=== PATIENT | male | born 1975 | race American Indian/Alaskan Native ===

== ENCOUNTER 2018-08-14 16:02 | Emergency (ER) | payer BC, OTHER ==
[2018-08-14 17:01] VITALS: BP 176/102
--- NOTE | 2018-08-14 17:03 | Emergency Department Report ---
Chief Complaint: Adult Asthma Stated Complaint: CHEST PAIN/ASTHMA/HEAD PAIN Time Seen by Provider: 08/14/18 17:00 - HPI History of Present Illness: This is a 43 y.o. male that presents to ER with SOB, N/V, fever, and cough. PMH of HTN, asthma Patient reports symptoms started 3 days ago while painting home. Patient denies taking medication prior to arrival. - Exam Vital Signs: Vital Signs 08/14/18 17:00 Temperature 100 F H Pulse Rate 102 H Respiratory 20 Rate Blood Pressure 176/102 O2 Sat by Pulse 95 Oximetry MSE screening note: Focused history and physical exam performed. Due to findings the following was ordered: CXR ED Disposition for MSE Condition: Stable
[2018-08-14] MEDS ORDERED: IBUPROFEN PO ONE (17:50)
[2018-08-14] MEDS ORDERED: PROVENTIL IH ONE (17:50)
[2018-08-14] MEDS ORDERED: DECADRON IV ONE (17:51)
--- NOTE | 2018-08-14 18:14 | XRay Report ---
PROCEDURE: XR CHEST ROUTINE 2V TECHNIQUE: PA and lateral chest radiographs were obtained. HISTORY: cough, fever, r/o pneumonia COMPARISONS: None. FINDINGS: Heart: Heart size normal. Mediastinum/Vessels: Trachea midline. Lungs/Pleural space: Normal. Bony thorax: No acute osseous abnormality. IMPRESSION: No acute pulmonary disease. This document is electronically signed by Sriram Hinojosa MD., Aug 14 2018 06:12:35 PM ET
[2018-08-14] MEDS ORDERED: DECADRON IM ONE (18:17)
--- NOTE | 2018-08-14 18:32 | Emergency Department Report ---
- General Chief Complaint: Adult Asthma Stated Complaint: CHEST PAIN/ASTHMA/HEAD PAIN Time Seen by Provider: 08/14/18 17:00 Source: patient Mode of arrival: Ambulatory Limitations: No Limitations - History of Present Illness Initial Comments: Patient is a 43-year-old male with a history of asthma who presents for wheezing cough productive of yellow-green with wheezing worse at night and environmental exposure symptoms haver persisted for past four days, there is no cp no n/v no diaphoresis , sob is relieve by rest. MD Complaint: cough, sore throat, rhinorrhea, nasal congestion, sinus pain Onset/Timin -: days(s) Severity: moderate Severity scale (0 -10): 5 Quality: sharp Consistency: constant Improves With: rest Worsens With: activity Associated Symptoms: rhinorrhea, nasal congestion, sore throat, cough, shortness of breath, ear pain. denies: nausea, vomiting, rash, right sweats, epistaxis, hoarseness Treatments Prior to Arrival: none - Related Data Previous Rx's Medication Instructions Recorded Last Taken Type Sulfamethoxazole/Trimethoprim 1 each PO BID #6 tablet 01/16/18 Unknown Rx [Bactrim DS TAB] ALBUTEROL Inhaler(NF) [VENTOLIN 2 puff IH Q4H PRN #1 inha 08/14/18 Unknown Rx Inhaler(NF)] Azithromycin [Zithromax Z-TRISTON] 250 mg PO DAILY 5 Days #6 tab 08/14/18 Unknown Rx Benzonatate [Tessalon Perles] 100 mg PO Q8HR PRN #30 capsule 08/14/18 Unknown Rx Dexamethasone [Decadron] 4 mg PO Q8H #12 tablet 08/14/18 Unknown Rx Ibuprofen 800 mg PO TID PRN #30 tablet 08/14/18 Unknown Rx Allergies Allergy/AdvReac Type Severity Reaction Status Date / Time No Known Allergies Allergy Verified 08/14/18 16:18 ED Review of Systems ROS: Stated complaint: CHEST PAIN/ASTHMA/HEAD PAIN Other details as noted in HPI Constitutional: malaise Eyes: denies: eye pain, eye discharge, vision change ENT: ear pain, throat pain, congestion Respiratory: cough, shortness of breath, wheezing Cardiovascular: denies: chest pain, palpitations Endocrine: no symptoms reported Gastrointestinal: denies: abdominal pain, nausea, vomiting, diarrhea Genitourinary: denies: urgency, dysuria, frequency, hematuria, discharge Musculoskeletal: denies: back pain Skin: denies: rash, lesions Neurological: denies: headache, weakness, paresthesias Psychiatric: denies: anxiety, depression Hematological/Lymphatic: denies: easy bleeding, easy bruising ED Past Medical Hx - Past Medical History Previous Medical History?: Yes Hx Arthritis: Yes - Surgical History Past Surgical History?: Yes Additional Surgical History: Hernia Surgery - Social History Smoking Status: Current Every Day Smoker Substance Use Type: None - Medications Home Medications: Home Medications Medication Instructions Recorded Confirmed Last Taken Type Sulfamethoxazole/Trimethoprim 1 each PO BID #6 tablet 01/16/18 Unknown Rx [Bactrim DS TAB] ALBUTEROL Inhaler(NF) [VENTOLIN 2 puff IH Q4H PRN #1 inha 08/14/18 Unknown Rx Inhaler(NF)] Azithromycin [Zithromax Z-TRISTON] 250 mg PO DAILY 5 Days #6 tab 08/14/18 Unknown Rx Benzonatate [Tessalon Perles] 100 mg PO Q8HR PRN #30 capsule 08/14/18 Unknown Rx Dexamethasone [Decadron] 4 mg PO Q8H #12 tablet 08/14/18 Unknown Rx Ibuprofen 800 mg PO TID PRN #30 tablet 08/14/18 Unknown Rx ED Physical Exam - General Limitations: No Limitations General appearance: alert, in no apparent distress - Head Head exam: Present: atraumatic, normocephalic - Eye Eye exam: Present: normal appearance, PERRL, EOMI Pupils: Present: normal accommodation - ENT ENT exam: Present: mucous membranes moist, TM's normal bilaterally, normal external ear exam - Expanded ENT Exam Expanded Throat exam: Positive: tonsillar erythema, tonsillomegaly, other (uvula midline no exudate no lesions no swelling no stridor ). Negative: tonsillar exudate, R peritonsillar mass, L peritonsillar mass - Neck Neck exam: Present: normal inspection, full ROM, lymphadenopathy. Absent: tenderness, thyromegaly - Respiratory Respiratory exam: Present: normal lung sounds bilaterally. Absent: respiratory distress, wheezes, stridor, chest wall tenderness - Cardiovascular Cardiovascular Exam: Present: regular rate, normal rhythm, normal heart sounds. Absent: systolic murmur, diastolic murmur, rubs, gallop - GI/Abdominal GI/Abdominal exam: Present: soft, normal bowel sounds. Absent: tenderness, bruit, hernia - Rectal Rectal exam: Present: deferred - Extremities Exam Extremities exam: Present: normal inspection, full ROM, normal capillary refill. Absent: tenderness, pedal edema, joint swelling, calf tenderness - Back Exam Back exam: Present: normal inspection, full ROM. Absent: tenderness, CVA tenderness (R), CVA tenderness (L), muscle spasm, paraspinal tenderness, vertebral tenderness, rash noted - Neurological Exam Neurological exam: Present: alert, oriented X3, CN II-XII intact, normal gait, reflexes normal. Absent: motor sensory deficit - Psychiatric Psychiatric exam: Present: normal affect, normal mood - Skin Skin exam: Present: warm, dry, intact, normal color. Absent: rash ED Course Vital Signs 08/14/18 17:00 Temperature 100 F H Pulse Rate 102 H Respiratory 20 Rate Blood Pressure 176/102 O2 Sat by Pulse 95 Oximetry ED Medical Decision Making - Radiology Data Radiology results: report reviewed, image reviewed Findings [address] [address] XRay Report Signed Patient: HARISH GOODWIN MR#: [id number] : 1975 Acct:[id number] Age/Sex: 43 / M ADM Date: 08/14/18 Loc: ED Attending Dr: Ordering Physician: JOE HATCH Date of Service: 08/14/18 Procedure(s): XR chest routine 2V Accession Number(s): [id number] cc: JOE HATCH Fluoro Time In Minutes: PROCEDURE: XR CHEST ROUTINE 2V TECHNIQUE: PA and lateral chest radiographs were obtained. HISTORY: cough, fever, r/o pneumonia COMPARISONS: None. FINDINGS: Heart: Heart size normal. Mediastinum/Vessels: Trachea midline. Lungs/Pleural space: Normal. Bony thorax: No acute osseous abnormality. IMPRESSION: No acute pulmonary disease. This document is electronically signed by Sriram Del Real MD., Aug 14 2018 06:12:35 PM ET Transcribed By: ARI Dictated By: SRIRAM DEL REAL MD Electronically Authenticated By: SRIRAM DEL REAL MD Signed Date/Time: 08/14/181813 DD/ 53 TD/TT: 08/14/184 - Medical Decision Making this is bronchitis versus asthma exacerbation breathing is improve with medications given in ed pt is currently ambulatory with steady gait no increase in wheezign or sob , plan: dc to home with rx for albuterol inhaler, zpack,decadron, ibuprofen , tessalon pearls, pt will folllow up with pcp in 2-3 days , will return to ed if symptoms worsen. Critical care attestation.: If time is entered above; I have spent that time in minutes in the direct care of this critically ill patient, excluding procedure time. ED Disposition Clinical Impression: Bronchitis Asthma Qualifiers: Asthma severity: moderate Asthma persistence: unspecified Asthma complication type: unspecified Qualified Code(s): J45.909 - Unspecified asthma, uncomplicated Disposition: DC-01 TO HOME OR SELFCARE Is pt being admited?: No Does the pt Need Aspirin: No Condition: Stable Instructions: Chronic Bronchitis (ED), Asthma (ED) Prescriptions: Dexamethasone [Decadron] 4 mg PO Q8H #12 tablet Ibuprofen 800 mg PO TID PRN #30 tablet PRN Reason: pain fever Benzonatate [Tessalon Perles] 100 mg PO Q8HR PRN #30 capsule PRN Reason: Cough ALBUTEROL Inhaler(NF) [VENTOLIN Inhaler(NF)] 2 puff IH Q4H PRN #1 inha PRN Reason: shortness of breathe wheezing Azithromycin [Zithromax Z-TRISTON] 250 mg PO DAILY 5 Days #6 tab Referrals: JOSHUA WREN MD [Staff Physician] - 3-5 Days KAYLIE ESPINOSA MD [Staff Physician] - 3-5 Days Forms: Work/School Release Form(ED) Time of Disposition: 18:42
== END 2018-08-14 18:54 | disposition home or self-care (01) ==
LOC: ED 16:02
DX: J45.909 Unspecified asthma, uncomplicated (principal); M19.90 Unspecified osteoarthritis, unspecified site; F17.200 Nicotine dependence, unspecified, uncomplicated
CPT/HCPCS: 71046; 94640; 96372; 99283; J1100

== ENCOUNTER 2018-11-01 11:17 | Emergency (ER) | payer BC ==
--- NOTE | 2018-11-01 11:23 | Emergency Department Report ---
Blank Doc - Documentation Documentation: this is a 43-year-old male that presents with right sided lower back pain. de nies any injuries or urinary complaints. This initial assessment/diagnostic orders/clinical plan/treatment(s) is/are subject to change based on patient's health status, clinical progression and re-assessment by fellow clinical providers in the ED. Further treatment and workup at subsequent clinical providers discretion. Patient/guardians urged not to elope from the ED as their condition may be serious if not clinically assessed and managed. Initial orders include: 1- Patient sent to [facility] for further evaluation and treatment
[2018-11-01 11:30] VITALS: BP 150/104
[2018-11-01] MEDS ORDERED: TORADOL IM ONE (12:20)
--- NOTE | 2018-11-01 12:20 | Emergency Department Report ---
ED Back Pain/Injury HPI - General Chief Complaint: Extremity Injury, Lower Stated Complaint: CHRONIC BACK PAIN/RT SIDE PAIN Time Seen by Provider: 11/01/18 11:22 Source: patient Limitations: No Limitations - History of Present Illness Initial Comments: Mr. Mcmahan is a 43-year-old male who was diagnosed with sciatica 3-4 years ago. He was recently evaluated at outside hospital ER for similar symptoms 2 months ago. He stated that he had injury remote injury 8 years ago. The person fell onto his back. He has right flank pain radiating to his right leg. Severe moderately burning achy pain. No bowel or urinary incontinence denies leg weakness. Has not seen a medical front desk specialist. He does not perform heavy lifting at work. MD Complaint: back pain -: Gradual, days(s) (3) Similar Symptoms Previously: No Place: home Severity: moderate Quality: dull Consistency: constant Improves With: none Worsens With: movement Associated Symptoms: denies other symptoms - Related Data Previous Rx's Medication Instructions Recorded Last Taken Type Sulfamethoxazole/Trimethoprim 1 each PO BID #6 tablet 01/16/18 Unknown Rx [Bactrim DS TAB] ALBUTEROL Inhaler(NF) [VENTOLIN 2 puff IH Q4H PRN #1 inha 08/14/18 Unknown Rx Inhaler(NF)] Azithromycin [Zithromax Z-TRISTON] 250 mg PO DAILY 5 Days #6 tab 08/14/18 Unknown Rx Benzonatate [Tessalon Perles] 100 mg PO Q8HR PRN #30 capsule 08/14/18 Unknown Rx Ibuprofen [Ibuprofen 800] 800 mg PO TID PRN #30 tablet 08/14/18 Unknown Rx dexAMETHasone [Decadron] 4 mg PO Q8H #12 tablet 08/14/18 Unknown Rx Cyclobenzaprine [Flexeril] 10 mg PO TID PRN #15 tablet 11/01/18 Unknown Rx HYDROcodone/APAP 5-325 [[place] 1 each PO Q6HR PRN #10 tablet 11/01/18 Unknown Rx 5/325] Allergies Allergy/AdvReac Type Severity Reaction Status Date / Time No Known Allergies Allergy Verified 08/14/18 16:18 ED Review of Systems ROS: Stated complaint: CHRONIC BACK PAIN/RT SIDE PAIN Other details as noted in HPI Comment: All other systems reviewed and negative Constitutional: denies: fever, malaise Respiratory: denies: cough Cardiovascular: denies: chest pain ED Past Medical Hx - Past Medical History Previous Medical History?: Yes Hx Arthritis: Yes - Surgical History Additional Surgical History: Hernia Surgery - Social History Smoking Status: Current Every Day Smoker Substance Use Type: None - Medications Home Medications: Home Medications Medication Instructions Recorded Confirmed Last Taken Type Sulfamethoxazole/Trimethoprim 1 each PO BID #6 tablet 01/16/18 Unknown Rx [Bactrim DS TAB] ALBUTEROL Inhaler(NF) [VENTOLIN 2 puff IH Q4H PRN #1 inha 08/14/18 Unknown Rx Inhaler(NF)] Azithromycin [Zithromax Z-TRISTON] 250 mg PO DAILY 5 Days #6 tab 08/14/18 Unknown Rx Benzonatate [Tessalon Perles] 100 mg PO Q8HR PRN #30 capsule 08/14/18 Unknown Rx Ibuprofen [Ibuprofen 800] 800 mg PO TID PRN #30 tablet 08/14/18 Unknown Rx dexAMETHasone [Decadron] 4 mg PO Q8H #12 tablet 08/14/18 Unknown Rx Cyclobenzaprine [Flexeril] 10 mg PO TID PRN #15 tablet 11/01/18 Unknown Rx HYDROcodone/APAP 5-325 [[place] 1 each PO Q6HR PRN #10 tablet 11/01/18 Unknown Rx 5/325] ED Physical Exam - General Limitations: No Limitations General appearance: alert, in no apparent distress - Head Head exam: Present: atraumatic, normocephalic - Eye Eye exam: Present: normal appearance - ENT ENT exam: Present: mucous membranes moist - Neck Neck exam: Present: normal inspection, full ROM - Respiratory Respiratory exam: Present: normal lung sounds bilaterally. Absent: respiratory distress, wheezes, rales, rhonchi - Cardiovascular Cardiovascular Exam: Present: regular rate, normal rhythm, normal heart sounds. Absent: systolic murmur, diastolic murmur, rubs, gallop - GI/Abdominal GI/Abdominal exam: Present: soft, normal bowel sounds. Absent: distended, tenderness, guarding, rebound - Rectal Rectal exam: Present: deferred - Extremities Exam Extremities exam: Present: normal inspection - Back Exam Back exam: Present: normal inspection, full ROM, muscle spasm. Absent: tenderness, paraspinal tenderness, vertebral tenderness - Neurological Exam Neurological exam: Present: alert, oriented X3 - Psychiatric Psychiatric exam: Present: normal affect, normal mood - Skin Skin exam: Present: warm, dry, intact, normal color. Absent: rash ED Course Vital Signs 11/01/18 11:28 Temperature 98.5 F Pulse Rate 89 Respiratory 18 Rate Blood Pressure 150/104 [Right] O2 Sat by Pulse 96 Oximetry ED Medical Decision Making - Medical Decision Making Mr. Mcmahan presents with recurrent pain due to sciatica. He appears well and comfortable in the emergency department. He received ketorolac IM in the ED. Received prescription for [place] and Flexeril Referred to outside medical physician for further evaluation. Critical care attestation.: If time is entered above; I have spent that time in minutes in the direct care of this critically ill patient, excluding procedure time. ED Disposition Clinical Impression: Acute back pain, History of sciatica Disposition: TO HOME OR SELFCARE Is pt being admited?: No Does the pt Need Aspirin: No Condition: Stable Instructions: Sciatica (ED) Prescriptions: Cyclobenzaprine [Flexeril] 10 mg PO TID PRN #15 tablet PRN Reason: Muscle Spasm HYDROcodone/APAP 5-325 [[place] 5/325] 1 each PO Q6HR PRN #10 tablet PRN Reason: Pain Referrals: IRNEE KLEIN DO [Staff Physician] - 3-5 Days Forms: Work/School Release Form(ED)
== END 2018-11-01 12:42 | disposition home or self-care (01) ==
LOC: ED 11:17
DX: G89.29 Other chronic pain (principal); M54.9 Dorsalgia, unspecified; M54.30 Sciatica, unspecified side; M19.90 Unspecified osteoarthritis, unspecified site; F17.200 Nicotine dependence, unspecified, uncomplicated; Z98.890 Other specified postprocedural states; Z79.899 Other long term (current) drug therapy
CPT/HCPCS: 96372; 99282; J1885

== ENCOUNTER 2019-03-20 13:17 | Observation (INO) | payer BC ==
[2019-03-20] MEDS ORDERED: SODIUM CHLORIDE 0.9% 1000 ML 1,000 ML IV ONE (13:26)
[2019-03-20] MEDS ORDERED: NITROGLYCERIN 2% OINT 1 GM TP ONE ×2 (13:31→13:45)
[2019-03-20] MEDS ORDERED: ASPIRIN 325 MG TAB ONE (13:31)
--- NOTE | 2019-03-20 13:42 | XRay Report ---
CHEST 1 VIEW INDICATION: Chest Pain. COMPARISON: 08/14/2018 FINDINGS: Support devices: None. Heart: Mild cardiomegaly. Lungs/Pleura: No acute air space or interstitial disease. Additional findings: None. IMPRESSION: 1. Mild cardiomegaly with clear lungs. Signer Name: Nickolas Little MD Signed: 03/20/2019 1:37 PM Workstation Name: [id number]
[2019-03-20] MEDS ORDERED: ASPIRIN 325 MG TAB PO ONE (13:45)
--- NOTE | 2019-03-20 13:45 | Emergency Department Report ---
ED Chest Pain HPI - General Chief Complaint: Chest Pain Stated Complaint: CHEST PAIN Time Seen by Provider: 03/20/19 13:23 Source: patient Mode of arrival: Ambulatory Limitations: No Limitations - History of Present Illness Initial Comments: Mr. Mcmahan is a 44-year-old male that comes to the emergency room clenching his chest, tachycardic into Neck. Patient states it feels like something is crushing him. He was just returning to his work place after eating lunch. PMH asthma Rx inhaler PSH hernia Mom alive with DM Dad dec ca Pt had a work physical 1 year ago and they told him he needed a cardiac work up and he never followed up BP elevated on admit- no hx HTN No trauma Denies use of drugs/cig Denies family hx of CAD Denies previous pain like this Pt noted to be diaphoretic and times tremulous. Denies fever or chills. Denies recent cough or purulent sputum. Denies recent inc in use of inhaler. MD Complaint: chest pain -: Sudden Onset: after eating Pain Location: substernal Severity: severe Quality: tightness, heaviness Consistency: intermittent Improves With: nothing Worsens With: nothing re: nausea Treatments Prior to Arrival: none Aspirin use within the Past 7 Days: (0) No - Related Data Previous Rx's Medication Instructions Recorded Last Taken Type Sulfamethoxazole/Trimethoprim 1 each PO BID #6 tablet 01/16/18 Unknown Rx [Bactrim DS TAB] ALBUTEROL Inhaler(NF) [VENTOLIN 2 puff IH Q4H PRN #1 inha 08/14/18 Unknown Rx Inhaler(NF)] Azithromycin [Zithromax Z-TRISTON] 250 mg PO DAILY 5 Days #6 tab 08/14/18 Unknown Rx Benzonatate [Tessalon Perles] 100 mg PO Q8HR PRN #30 capsule 08/14/18 Unknown Rx Ibuprofen [Ibuprofen 800] 800 mg PO TID PRN #30 tablet 08/14/18 Unknown Rx dexAMETHasone [Decadron] 4 mg PO Q8H #12 tablet 08/14/18 Unknown Rx Cyclobenzaprine [Flexeril] 10 mg PO TID PRN #15 tablet 11/01/18 Unknown Rx HYDROcodone/APAP 5-325 [[place] 1 each PO Q6HR PRN #10 tablet 11/01/18 Unknown Rx 5/325] Allergies Allergy/AdvReac Type Severity Reaction Status Date / Time No Known Allergies Allergy Verified 03/20/19 13:55 Heart Score - HEART Score History: Slightly suspicious EKG: Normal Age: < 45 Risk factors: No known risk factors Troponin: < normal limit HEART Score: 0 ED Review of Systems ROS: Stated complaint: CHEST PAIN Other details as noted in HPI Comment: All other systems reviewed and negative ED Past Medical Hx - Past Medical History Hx Arthritis: Yes Hx Asthma: Yes - Surgical History Past Surgical History?: Yes Additional Surgical History: Hernia Surgery - Social History Smoking Status: Current Every Day Smoker Substance Use Type: None - Medications Home Medications: Home Medications Medication Instructions Recorded Confirmed Last Taken Type Sulfamethoxazole/Trimethoprim 1 each PO BID #6 tablet 01/16/18 Unknown Rx [Bactrim DS TAB] ALBUTEROL Inhaler(NF) [VENTOLIN 2 puff IH Q4H PRN #1 inha 08/14/18 Unknown Rx Inhaler(NF)] Azithromycin [Zithromax Z-TRISTON] 250 mg PO DAILY 5 Days #6 tab 08/14/18 Unknown Rx Benzonatate [Tessalon Perles] 100 mg PO Q8HR PRN #30 capsule 08/14/18 Unknown Rx Ibuprofen [Ibuprofen 800] 800 mg PO TID PRN #30 tablet 08/14/18 Unknown Rx dexAMETHasone [Decadron] 4 mg PO Q8H #12 tablet 08/14/18 Unknown Rx Cyclobenzaprine [Flexeril] 10 mg PO TID PRN #15 tablet 11/01/18 Unknown Rx HYDROcodone/APAP 5-325 [[place] 1 each PO Q6HR PRN #10 tablet 11/01/18 Unknown Rx 5/325] ED Physical Exam - General Limitations: No Limitations General appearance: alert, in no apparent distress - Head Head exam: Present: atraumatic, normocephalic - Eye Eye exam: Present: normal appearance - ENT ENT exam: Present: mucous membranes moist - Neck Neck exam: Present: normal inspection - Respiratory Respiratory exam: Present: normal lung sounds bilaterally. Absent: respiratory distress - Cardiovascular Cardiovascular Exam: Present: regular rate, normal rhythm. Absent: systolic murmur, diastolic murmur, rubs, gallop - GI/Abdominal GI/Abdominal exam: Present: soft, normal bowel sounds - Rectal Rectal exam: Present: deferred - Extremities Exam Extremities exam: Present: normal inspection - Back Exam Back exam: Present: normal inspection - Neurological Exam Neurological exam: Present: alert, oriented X3 - Psychiatric Psychiatric exam: Present: normal affect, normal mood - Skin Skin exam: Present: warm, dry, intact, normal color. Absent: rash ED Course Vital Signs 03/20/19 03/20/19 03/20/19 13:23 13:30 13:45 Temperature 97.4 F L Pulse Rate 85 80 83 Respiratory 26 H 34 H Rate Blood Pressure 153/92 145/103 Blood Pressure 153/92 [Right] O2 Sat by Pulse 99 100 Oximetry 03/20/19 03/20/19 03/20/19 14:00 14:30 15:31 Temperature Pulse Rate 70 72 70 Respiratory 14 13 23 Rate Blood Pressure 145/103 149/94 170/84 Blood Pressure [Right] O2 Sat by Pulse 99 100 100 Oximetry 03/20/19 15:56 Temperature Pulse Rate 74 Respiratory Rate Blood Pressure 157/94 Blood Pressure [Right] O2 Sat by Pulse Oximetry SAUL score - Saul Score Age > 65: (0) No Aspirin use within the Past 7 Days: (0) No 3 or more CAD Risk Factors: (0) No 2 or more Angina events in past 24 hrs: (0) No Known CAD with more than 50% Stenosis: (0) No Elevated Cardiac Markers: (0) No ST Deviation Greater than 0.5mm: (0) No SAUL Score: 0 ED Medical Decision Making - Lab Data Result diagrams: 03/20/19 13:52 03/20/19 13:52 - EKG Data EKG shows normal: sinus rhythm Rate: tachycardia - EKG Data When compared to previous EKG there are: no significant change Interpretation: no acute changes - Radiology Data Radiology results: report reviewed, image reviewed - Medical Decision Making Labs 03/20/19 03/20/19 03/20/19 13:52 13:52 13:52 WBC 6.4 RBC 4.80 Hgb 14.0 Hct 42.2 MCV 88 MCH 29 MCHC 33 RDW 14.1 Plt Count 172 Lymph % (Auto) 30.6 [place] % (Auto) 10.9 H Eos % (Auto) 1.2 Baso % (Auto) 0.5 Lymph # 2.0 [place] # 0.7 Eos # 0.1 Baso # 0.0 Seg Neutrophils % 56.8 Seg Neutrophils # 3.6 PT 13.4 INR 1.01 APTT 27.7 Sodium 141 Potassium 3.6 Chloride 102.4 Carbon Dioxide 24 Anion Gap 18 BUN 14 Creatinine 1.1 Estimated GFR > 60 BUN/Creatinine Ratio 13 Glucose 109 H Calcium 8.9 Total Bilirubin 0.50 AST 25 ALT 24 Alkaline Phosphatase 77 Total Creatine Kinase Troponin T < 0.010 Total Protein 7.5 Albumin 4.3 Albumin/Globulin Ratio 1.3 Lipase 20 Urine Color Urine Turbidity Urine pH Ur Specific [place] Urine Protein Urine Glucose (UA) Urine Ketones Urine Blood Urine Nitrite Urine Bilirubin Urine Urobilinogen Ur Leukocyte Esterase Urine WBC (Auto) Urine RBC (Auto) U Epithel Cells (Auto) Urine Mucus Urine Opiates Screen Urine Methadone Screen Ur Barbiturates Screen Ur Phencyclidine Scrn Ur Amphetamines Screen U Benzodiazepines Scrn Urine Cocaine Screen U Marijuana (THC) Screen 03/20/19 03/20/19 03/20/19 13:52 14:14 14:14 WBC RBC Hgb Hct MCV MCH MCHC RDW Plt Count Lymph % (Auto) [place] % (Auto) Eos % (Auto) Baso % (Auto) Lymph # [place] # Eos # Baso # Seg Neutrophils % Seg Neutrophils # PT INR APTT Sodium Potassium Chloride Carbon Dioxide Anion Gap BUN Creatinine Estimated GFR BUN/Creatinine Ratio Glucose Calcium Total Bilirubin AST ALT Alkaline Phosphatase Total Creatine Kinase 565 H Troponin T Total Protein Albumin Albumin/Globulin Ratio Lipase Urine Color Yellow Urine Turbidity Clear Urine pH 7.0 Ur Specific [place] 1.016 Urine Protein <15 mg/dl Urine Glucose (UA) Neg Urine Ketones Neg Urine Blood Neg Urine Nitrite Neg Urine Bilirubin Neg Urine Urobilinogen < 2.0 Ur Leukocyte Esterase Neg Urine WBC (Auto) 1.0 Urine RBC (Auto) 3.0 U Epithel Cells (Auto) < 1.0 Urine Mucus Few Urine Opiates Screen Presumptive negative Urine Methadone Screen Presumptive negative Ur Barbiturates Screen Presumptive negative Ur Phencyclidine Scrn Presumptive negative Ur Amphetamines Screen Presumptive negative U Benzodiazepines Scrn Presumptive negative Urine Cocaine Screen Presumptive negative U Marijuana (THC) Screen Presumptive positive Vital Signs 03/20/19 03/20/19 13:23 13:45 Temperature 97.4 F L Pulse Rate 85 83 Respiratory 26 H Rate Blood Pressure 145/103 Blood Pressure 153/92 [Right] O2 Sat by Pulse 99 Oximetry 12 LEAD NOTED XRAY NOTED LABS NOTED UA NOTED THC DISCUSSED WITH PT CLONIDINE FOR BP CT NOTED [address] CALZADA TO EVALUATE 1645 PT TO BE ADMITTED FOR CARDIAC EVALUATION. - Differential Diagnosis ro dissection/ro acs/ro anxiety/ro asthma ae Critical care attestation.: If time is entered above; I have spent that time in minutes in the direct care of this critically ill patient, excluding procedure time. ED Disposition Clinical Impression: Chest pain, History of asthma Disposition: OP ADMIT IP TO THIS HOSP Is pt being admited?: Yes Does the pt Need Aspirin: Yes Condition: Stable Instructions: Chest Pain (ED) Referrals: PRIMARY CAREMD [Primary Care Provider] - 3-5 Days NATALIYA KHALIL MD [Staff Physician] - 3-5 Days Time of Disposition: 15:54
[2019-03-20 14:22] LABS: Basophils % (Auto) 0.5 % (0.0-1.8); Eosinophils # (Auto) 0.1 K/mm3 (0.0-0.4); Eosinophils % (Auto) 1.2 % (0.0-4.3); Hematocrit 42.2 % (35.5-45.6); Lymphocytes % (Auto) 30.6 % (13.4-35.0); Mean Corpuscular HGB Conc 33 % (32-34); Mean Corpuscular Volume 88 fl (84-94); Monocytes # (Auto) 0.7 K/mm3 (0.0-0.8); Monocytes % (Auto) 10.9 % (0.0-7.3); Platelet Count 172 K/mm3 (140-440); Red Cell Distribution Width 14.1 % (13.2-15.2)
[2019-03-20 14:36] LABS: Bilirubin,Urine NEG (Negative); Blood,Urine NEG (Negative); Color,Urine Yellow (Yellow); Mucus,Urine FEW /HPF; Protein,Urine <15 mg/dL mg/dL (Negative); Urobilinogen,Urine < 2.0 mg/dL (<2.0)
[2019-03-20 14:39] LABS: INR 1.01 (0.87-1.13)
[2019-03-20 14:41] LABS: Partial Thromboplastin Time 27.7 Sec. (24.2-36.6)
[2019-03-20 14:46] LABS: Alanine Aminotransferase 24 units/L (7-56); Albumin 4.3 g/dL (3.9-5); BUN/Creatinine Ratio 13; Blood Urea Nitrogen 14 mg/dL (9-20); Calcium 8.9 mg/dL (8.4-10.2); Hemolysis Index 9
[2019-03-20 14:49] LABS: Amphetamine Screen,Urine PRESUMPTIVE NEGATIVE; Benzodiazepines Screen,Urine PRESUMPTIVE NEGATIVE; Cocaine Screen,Urine PRESUMPTIVE NEGATIVE; Methadone Screen,Urine PRESUMPTIVE NEGATIVE; Opiate Screen,Urine PRESUMPTIVE NEGATIVE
[2019-03-20 15:01] LABS: Cannabinoid Screen,Urine PRESUMPTIVE POSITIVE
[2019-03-20] MEDS ORDERED: cloNIDine 0.1 MG TAB PO ONE (15:07)
--- NOTE | 2019-03-20 15:31 | Cat Scan Report ---
CTA CHEST WITH IV CONTRAST INDICATION: Chest pain. Possible aortic dissection. TECHNIQUE: Axial CT images were obtained through the chest after injection of 100 mL Omnipaque 300 IV contrast. 3 plane MIP reconstructions were produced. All CT scans at this location are performed using CT dose reduction for ALARA by means of automated exposure control. COMPARISON: One view of the chest from earlier today. FINDINGS: PULMONARY ARTERIES: Well-opacified without visualization of thromboemboli. AORTA AND ARTERIES: No dissection or other significant abnormality. MEDIASTINUM: The thyroid gland is enlarged and contains numerous nodules with extension into the supe rior mediastinum. No mediastinal mass or lymphadenopathy is seen. The heart is moderately enlarged wi thout a pericardial effusion. LUNGS: There is mild lingular and right middle lobe atelectasis without an additional significant pul monary abnormality. No pneumothorax or pleural effusion. ADDITIONAL FINDINGS: None. UPPER ABDOMEN: No acute findings. BONES: No significant osseous abnormality. IMPRESSION: 1. No aortic dissection or other acute abnormality of the chest. 2. Moderate cardiomegaly. Signer Name: Ruel Alvarado MD Signed: 03/20/2019 3:26 PM Workstation Name: [id number]
[2019-03-20] MEDS ORDERED: ALBUTEROL 2.5 MG/3 ML NEBU IH ONE (15:53)
[2019-03-20] MEDS ORDERED: IBUPROFEN 800 MG TAB PO ONE (15:54)
[2019-03-20] MEDS ORDERED: LORazepam 2 MG/ML VIAL ONE (20:37)
[2019-03-20] MEDS ORDERED: ONDANSETRON 4 MG/2 ML INJ ONE (20:38)
[2019-03-20] MEDS ORDERED: MORPHINE 2 MG/1 ML INJ ONE (20:38)
[2019-03-20] MEDS ORDERED: ONDANSETRON 4 MG/2 ML INJ IV ONE (20:45)
[2019-03-20] MEDS ORDERED: MORPHINE 4 MG/1 ML INJ IV ONE (20:45)
--- NOTE | 2019-03-20 22:16 | History and Physical Report ---
History of Present Illness Date of examination: 03/20/19 Date of admission: 03/20/19 16:12 Chief complaint: CP for few hours since AM History of present illness: 44-year-old male that comes to the emergency room clenching his chest.Patient in severe anxiety and Hyperventilating.HChest pain 8 on a scale of one to 10.was given Ativan and had good reief.Had recurrent anxiety attack while in Er assocated with chest wall muscle spasms.During my exam.Diaphoresis present.No palpitations. Past Medical History Arthritis: Yes Asthma: Yes Surgical History Past Surgical History?: Yes Additional Surgical History: Hernia Surgery Social History Smoking Status: Current Every Day Smoker Substance Use Type: None Medications Home Medications: Home Medications Medication Instructions Recorded Confirmed Last Taken Type Sulfamethoxazole/Trimethoprim 1 each PO BID #6 tablet 01/16/18 Unknown Rx [Bactrim DS TAB] ALBUTEROL Inhaler(NF) [VENTOLIN 2 puff IH Q4H PRN #1 inha 08/14/18 Unknown Rx Inhaler(NF)] Azithromycin [Zithromax Z-TRISTON] 250 mg PO DAILY 5 Days #6 tab 08/14/18 Unknown Rx Benzonatate [Tessalon Perles] 100 mg PO Q8HR PRN #30 capsule 08/14/18 Unknown Rx Ibuprofen [Ibuprofen 800] 800 mg PO TID PRN #30 tablet 08/14/18 Unknown Rx dexAMETHasone [Decadron] 4 mg PO Q8H #12 tablet 08/14/18 Unknown Rx Cyclobenzaprine [Flexeril] 10 mg PO TID PRN #15 tablet 11/01/18 Unknown Rx HYDROcodone/APAP 5-325 [[place] 1 each PO Q6HR PRN #10 tablet 11/01/18 Unknown Rx 5/325] Medications and Allergies Allergies Allergy/AdvReac Type Severity Reaction Status Date / Time No Known Allergies Allergy Verified 03/20/19 13:55 Home Medications Medication Instructions Recorded Confirmed Last Taken Type Sulfamethoxazole/Trimethoprim 1 each PO BID #6 tablet 01/16/18 Unknown Rx [Bactrim DS TAB] ALBUTEROL Inhaler(NF) [VENTOLIN 2 puff IH Q4H PRN #1 inha 08/14/18 Unknown Rx Inhaler(NF)] Azithromycin [Zithromax Z-TRISTON] 250 mg PO DAILY 5 Days #6 tab 08/14/18 Unknown Rx Benzonatate [Tessalon Perles] 100 mg PO Q8HR PRN #30 capsule 08/14/18 Unknown Rx Ibuprofen [Ibuprofen 800] 800 mg PO TID PRN #30 tablet 08/14/18 Unknown Rx dexAMETHasone [Decadron] 4 mg PO Q8H #12 tablet 08/14/18 Unknown Rx Cyclobenzaprine [Flexeril] 10 mg PO TID PRN #15 tablet 11/01/18 Unknown Rx HYDROcodone/APAP 5-325 [[place] 1 each PO Q6HR PRN #10 tablet 11/01/18 Unknown Rx 5/325] Review of Systems All systems: negative Constitutional: no weight loss, no weight gain, no fever, no chills, no sweats, no night sweats Ears, nose, mouth and throat: deferred Cardiovascular: chest pain, shortness of breath Respiratory: shortness of breath, no cough, no cough with sputum, no excessive sputum, no hemoptysis, no dyspnea on exertion, no congestion, no wheezing Gastrointestinal: no abdominal pain, no nausea, no vomiting, no diarrhea Genitourinary Male: no dysuria, no hematuria, no flank pain, no discharge, no ur inary frequency Musculoskeletal: no neck stiffness, no neck pain, no shooting arm pain, no arm numbness/tingling Integumentary: no rash, no pruritis Neurological: no head injury, no seizures, no syncope Psychiatric: anxiety Endocrine: no cold intolerance, no heat intolerance Hematologic/Lymphatic: no easy bruising, no easy bleeding Allergic/Immunologic: no urticaria Exam - Constitutional Vitals: Temp Pulse Resp BP Pulse Ox 97.4 F L 75 16 153/102 97 03/20/19 13:23 03/20/19 21:00 03/20/19 21:00 03/20/19 21:00 03/20/19 21:00 General appearance: Present: no acute distress, mild distress, well-nourished - EENT Eyes: Present: PERRL ENT: hearing intact, clear oral mucosa - Neck Neck: Present: supple, normal ROM - Respiratory Respiratory effort: normal Respiratory: bilateral: CTA - Cardiovascular Heart rate: 98 Rhythm: regular Heart Sounds: Present: S1 & S2. Absent: rub, click - Extremities Extremities: no ischemia, pulses intact, pulses symmetrical, No edema Peripheral Pulses: within normal limits - Abdominal General gastrointestinal: Present: soft, non-tender, non-distended, normal bowel sounds Male genitourinary: Present: normal - Rectal Rectal Exam: deferred - Integumentary Integumentary: Present: clear, warm, dry - Musculoskeletal Musculoskeletal: gait normal, strength equal bilaterally - Psychiatric Psychiatric: appropriate mood/affect, intact judgment & insight - Neurologic Neurologic: CNII-XII intact, moves all extremities - Allied Health Allied health notes reviewed: nursing Results - Labs CBC & Chem 7: 03/21/19 04:08 03/21/19 04:08 Labs: Laboratory Last Values WBC 6.4 K/mm3 (4.5-11.0) 03/20/19 13:52 RBC 4.80 M/mm3 (3.65-5.03) 03/20/19 13:52 Hgb 14.0 gm/dl (11.8-15.2) 03/20/19 13:52 Hct 42.2 % (35.5-45.6) 03/20/19 13:52 MCV 88 fl (84-94) 03/20/19 13:52 MCH 29 pg (28-32) 03/20/19 13:52 MCHC 33 % (32-34) 03/20/19 13:52 RDW 14.1 % (13.2-15.2) 03/20/19 13:52 Plt Count 172 K/mm3 (140-440) 03/20/19 13:52 Lymph % (Auto) 30.6 % (13.4-35.0) 03/20/19 13:52 [place] % (Auto) 10.9 % (0.0-7.3) H 03/20/19 13:52 Eos % (Auto) 1.2 % (0.0-4.3) 03/20/19 13:52 Baso % (Auto) 0.5 % (0.0-1.8) 03/20/19 13:52 Lymph # 2.0 K/mm3 (1.2-5.4) 03/20/19 13:52 [place] # 0.7 K/mm3 (0.0-0.8) 03/20/19 13:52 Eos # 0.1 K/mm3 (0.0-0.4) 03/20/19 13:52 Baso # 0.0 K/mm3 (0.0-0.1) 03/20/19 13:52 Seg Neutrophils % 56.8 % (40.0-70.0) 03/20/19 13:52 Seg Neutrophils # 3.6 K/mm3 (1.8-7.7) 03/20/19 13:52 PT 13.4 Sec. (12.2-14.9) 03/20/19 13:52 INR 1.01 (0.87-1.13) 03/20/19 13:52 APTT 27.7 Sec. (24.2-36.6) 03/20/19 13:52 Sodium 141 mmol/L (137-145) 03/20/19 13:52 Potassium 3.6 mmol/L (3.6-5.0) 03/20/19 13:52 Chloride 102.4 mmol/L (98-107) 03/20/19 13:52 Carbon Dioxide 24 mmol/L (22-30) 03/20/19 13:52 Anion Gap 18 mmol/L 03/20/19 13:52 BUN 14 mg/dL (9-20) 03/20/19 13:52 Creatinine 1.1 mg/dL (0.8-1.5) 03/20/19 13:52 Estimated GFR > 60 ml/min 03/20/19 13:52 BUN/Creatinine Ratio 13 % 03/20/19 13:52 Glucose 109 mg/dL (75-100) H 03/20/19 13:52 Calcium 8.9 mg/dL (8.4-10.2) 03/20/19 13:52 Total Bilirubin 0.50 mg/dL (0.1-1.2) 03/20/19 13:52 AST 25 units/L (5-40) 03/20/19 13:52 ALT 24 units/L (7-56) 03/20/19 13:52 Alkaline Phosphatase 77 units/L (35-129) 03/20/19 13:52 Total Creatine Kinase 565 units/L (55-170) H 03/20/19 13:52 Troponin T < 0.010 ng/mL (0.00-0.029) 03/20/19 Unknown Total Protein 7.5 g/dL (6.3-8.2) 03/20/19 13:52 Albumin 4.3 g/dL (3.9-5) 03/20/19 13:52 Albumin/Globulin Ratio 1.3 % 03/20/19 13:52 Lipase 20 units/L (13-60) 03/20/19 13:52 Urine Color Yellow (Yellow) 03/20/19 14:14 Urine Turbidity Clear (Clear) 03/20/19 14:14 Urine pH 7.0 (5.0-7.0) 03/20/19 14:14 Ur Specific [place] 1.016 (1.003-1.030) 03/20/19 14:14 Urine Protein <15 mg/dl mg/dL (Negative) 03/20/19 14:14 Urine Glucose (UA) Neg mg/dL (Negative) 03/20/19 14:14 Urine Ketones Neg mg/dL (Negative) 03/20/19 14:14 Urine Blood Neg (Negative) 03/20/19 14:14 Urine Nitrite Neg (Negative) 03/20/19 14:14 Urine Bilirubin Neg (Negative) 03/20/19 14:14 Urine Urobilinogen < 2.0 mg/dL (<2.0) 03/20/19 14:14 Ur Leukocyte Esterase Neg (Negative) 03/20/19 14:14 Urine WBC (Auto) 1.0 /HPF (0.0-6.0) 03/20/19 14:14 Urine RBC (Auto) 3.0 /HPF (0.0-6.0) 03/20/19 14:14 U Epithel Cells (Auto) < 1.0 /HPF (0-13.0) 03/20/19 14:14 Urine Mucus Few /HPF 03/20/19 14:14 Urine Opiates Screen Presumptive negative 03/20/19 14:14 Urine Methadone Screen Presumptive negative 03/20/19 14:14 Ur Barbiturates Screen Presumptive negative 03/20/19 14:14 Ur Phencyclidine Scrn Presumptive negative 03/20/19 14:14 Ur Amphetamines Screen Presumptive negative 03/20/19 14:14 U Benzodiazepines Scrn Presumptive negative 03/20/19 14:14 Urine Cocaine Screen Presumptive negative 03/20/19 14:14 U Marijuana (THC) Screen Presumptive positive 03/20/19 14:14 Drugs of Abuse Note Disclamer 03/20/19 14:14 Short CBC 03/20/19 03/21/19 Range/Units 13:52 04:08 WBC 6.4 6.0 (4.5-11.0) K/mm3 Hgb 14.0 12.7 (11.8-15.2) gm/dl Hct 42.2 39.2 (35.5-45.6) % Plt Count 172 176 (140-440) K/mm3 BMP 03/20/19 03/21/19 13:52 04:08 Sodium 141 141 Potassium 3.6 3.7 Chloride 102.4 106.6 Carbon Dioxide 24 23 BUN 14 11 Creatinine 1.1 0.9 Glucose 109 H 96 Calcium 8.9 8.2 L Cardiac Enzymes 03/20/19 03/20/19 03/20/19 Range/Units 13:52 13:52 19:01 Total Creatine Kinase 565 H (55-170) units/L Troponin T < 0.010 < 0.010 (0.00-0.029) ng/mL 03/20/19 03/20/19 03/21/19 Range/Units 22:27 Unknown 04:08 Total Creatine Kinase (55-170) units/L Troponin T < 0.010 < 0.010 < 0.010 (0.00-0.029) ng/mL Liver Function 03/20/19 03/21/19 Range/Units 13:52 04:08 Total Bilirubin 0.50 0.40 (0.1-1.2) mg/dL AST 25 19 (5-40) units/L ALT 24 20 (7-56) units/L Alkaline Phosphatase 77 67 (35-129) units/L Albumin 4.3 3.7 L (3.9-5) g/dL Urine 03/20/19 Range/Units 14:14 Urine Color Yellow (Yellow) Urine pH 7.0 (5.0-7.0) Ur Specific [place] 1.016 (1.003-1.030) Urine Protein <15 mg/dl (Negative) mg/dL Urine Glucose (UA) Neg (Negative) mg/dL - Imaging and Cardiology EKG: report reviewed Chest x-ray: report reviewed (NAF) CT scan - chest: report reviewed (NAF on CTA) Assessment and Plan Advance Directives: Yes (Full code) VTE prophylaxis?: Chemical Plan of care discussed with patient/family: Yes - Patient Problems (1) Chest pain Current Visit: Yes Status: Acute Qualifiers: Chest pain type: unspecified Qualified Code(s): R07.9 - Chest pain, unspecified Plan to address problem: Sec to anxiety Chest pain protocol Stress test in AM Serial Troponins (2) History of asthma Current Visit: Yes Status: Inactive Plan to address problem: ASlbuterol Prn qid (3) DANIEL (generalized anxiety disorder) Current Visit: Yes Status: Acute Plan to address problem: Ativan prn for now (4) DVT prophylaxis Current Visit: Yes Status: Acute Plan to address problem: On Heparin and GI prophylaxis
[2019-03-20] MEDS ORDERED: ONDANSETRON 4 MG/2 ML INJ IV PRN (22:17)
[2019-03-20] MEDS ORDERED: METOCLOPRAMIDE 10 MG/2 ML INJ IV PRN (22:17)
[2019-03-20] MEDS ORDERED: HYDROmorphone 1 MG/1 ML INJ IV PRN (22:17)
[2019-03-20] MEDS ORDERED: oxyCODONE /ACETAMINOPHEN 5-325MG TAB PO PRN (22:17)
[2019-03-20] MEDS ORDERED: ACETAMINOPHEN 325 MG TAB PO PRN (22:17)
[2019-03-20] MEDS ORDERED: ALBUTEROL 8.5 GM INHALATION IH PRN (22:22)
[2019-03-20] MEDS ORDERED: CYCLOBENZAPRINE 10 MG TAB PO PRN (22:22)
[2019-03-20] MEDS ORDERED: SODIUM CHLORIDE 0.9% 1000 ML 1,000 ML IV SCH (22:30)
[2019-03-20] MEDS ORDERED: ALBUTEROL 2.5 MG/3 ML NEBU IH PRN (22:59)
[2019-03-20] MEDS: FAMOTIDINE 20 MG/2 ML INJ IV SCH (23:24)
[2019-03-21 05:55] LABS: Basophils % (Auto) 0.3 % (0.0-1.8); Eosinophils # (Auto) 0.1 K/mm3 (0.0-0.4); Eosinophils % (Auto) 1.9 % (0.0-4.3); Hematocrit 39.2 % (35.5-45.6); Hemoglobin 12.7 gm/dl (11.8-15.2); Lymphocytes # (Auto) 2.2 K/mm3 (1.2-5.4); Lymphocytes % (Auto) 36.5 % (13.4-35.0); Mean Corpuscular HGB Conc 32 % (32-34); Mean Corpuscular Volume 89 fl (84-94); Monocytes # (Auto) 0.7 K/mm3 (0.0-0.8); Monocytes % (Auto) 12.2 % (0.0-7.3); Platelet Count 176 K/mm3 (140-440); Red Blood Count 4.41 M/mm3 (3.65-5.03); Red Cell Distribution Width 14.6 % (13.2-15.2)
[2019-03-21 06:16] LABS: Alanine Aminotransferase 20 units/L (7-56); Albumin 3.7 g/dL (3.9-5); BUN/Creatinine Ratio 12; Blood Urea Nitrogen 11 mg/dL (9-20); Calcium 8.2 mg/dL (8.4-10.2); Hemolysis Index 24
[2019-03-21] MEDS ORDERED: LORazepam 2 MG/ML VIAL IV PRN (07:00)
[2019-03-21] MEDS ORDERED: hydrALAZINE 20 MG/1 ML INJ IV PRN ×2 (10:30→16:17)
--- NOTE | 2019-03-21 11:51 | Treadmill Report ---
EXERCISE STRESS TEST The patient exercised for 9 minutes of the Rj protocol, completing stage 3 and achieving 10 mets. The peak heart rate was 150 beats per minute. The peak blood pressure was 185/105. There was no chest pain. Test was stopped for fatigue. Baseline ECG was sinus rhythm. With exercise, there were no ST changes of ischemia. No significant dysrhythmias were noted. CONCLUSION: 1. Above average exercise capacity. 2. No chest pain. 3. No ST changes of ischemia. 4. No significant dysrhythmias. This is a negative exercise ECG test. JOB# [id number] CA/NTS
[2019-03-21] MEDS: FAMOTIDINE 20 MG/2 ML INJ IV SCH (12:18)
[2019-03-21] MEDS: HEPARIN 5,000 UNIT/1 ML VIAL SUB-Q SCH ×2 (12:19→22:24)
[2019-03-21] MEDS: busPIRone 10 MG TAB PO SCH ×2 (12:23→22:24)
--- NOTE | 2019-03-21 16:25 | Progress Note ---
Assessment and Plan Assessment and plan: Patient is a 44 yo man with a history of tobacco dependency who presents with chest pains. It appears he had anxiety attack in ER. CTA chest unremarkable for PE and Stress test negative for ischemia. His symptoms are most likely related to anxiety. Anxiety disorder: start Xanax and Zoloft Malignant hypertension, which is new onset hypertension, did not respond to clonidine: iv labetalol prn, start Metoprolol and Losartan Chest pain most likely related to anxiety History of asthma: prn albuterol Marijuana use and tobacco dependency: outreach counselor on stopping Obese, bmi 36.3: lifestyle modification stressed DVT prophylaxis On Heparin and GI prophylaxis Disposition: continue inpatient care, once bp better then discharge home History Interval history: Patient was seen and examined. Follow-up on current diagnosis of chest pains. No overnight events reported to me. Patient denies any chest pain, shortness breath, nausea/vomiting or severe headaches. Imaging, nursing note, chart, labs and old chart reviewed. Discussed with patient. Hospitalist Physical - Physical exam Narrative exam: Gen: WDWN, NAD, Awake, Alert, Orientated x 3, bmi 36.3 HEENT: NCAT, EOMI, PERRL, OP Clear Neck: supple, no adenopathy, no thyromegaly, no JVD CVS/Heart: RRR, normal S1S2, pulses present bilaterally Chest/Lungs: CTA B, Symmetrical chest expansion, good air entry bilaterally, r eproducible GI/Abdomen: soft, NTND, good bowel sounds, no guarding or rebound /Bladder: no suprapubic tenderness, no CVA or paraspinal tenderness Extermity/Skin: no c/c/e, no obvious rash MSK: FROM x 4 Neuro: CN 2-12 grossly intact, no new focal deficits Psych: anxious - Constitutional Vitals: Temp Pulse Resp BP Pulse Ox 98.5 F 99 H 20 153/102 94 03/21/19 16:16 03/21/19 12:57 03/21/19 16:16 03/21/19 16:16 03/21/19 12:57 General appearance: Present: no acute distress, mild distress, well-nourished Results - Labs CBC & Chem 7: 03/21/19 04:08 03/21/19 04:08 Labs: Laboratory Last Values WBC 6.0 K/mm3 (4.5-11.0) 03/21/19 04:08 RBC 4.41 M/mm3 (3.65-5.03) 03/21/19 04:08 Hgb 12.7 gm/dl (11.8-15.2) 03/21/19 04:08 Hct 39.2 % (35.5-45.6) 03/21/19 04:08 MCV 89 fl (84-94) 03/21/19 04:08 MCH 29 pg (28-32) 03/21/19 04:08 MCHC 32 % (32-34) 03/21/19 04:08 RDW 14.6 % (13.2-15.2) 03/21/19 04:08 Plt Count 176 K/mm3 (140-440) 03/21/19 04:08 Lymph % (Auto) 36.5 % (13.4-35.0) H 03/21/19 04:08 [place] % (Auto) 12.2 % (0.0-7.3) H 03/21/19 04:08 Eos % (Auto) 1.9 % (0.0-4.3) 03/21/19 04:08 Baso % (Auto) 0.3 % (0.0-1.8) 03/21/19 04:08 Lymph # 2.2 K/mm3 (1.2-5.4) 03/21/19 04:08 [place] # 0.7 K/mm3 (0.0-0.8) 03/21/19 04:08 Eos # 0.1 K/mm3 (0.0-0.4) 03/21/19 04:08 Baso # 0.0 K/mm3 (0.0-0.1) 03/21/19 04:08 Seg Neutrophils % 49.1 % (40.0-70.0) 03/21/19 04:08 Seg Neutrophils # 2.9 K/mm3 (1.8-7.7) 03/21/19 04:08 PT 13.4 Sec. (12.2-14.9) 03/20/19 13:52 INR 1.01 (0.87-1.13) 03/20/19 13:52 APTT 27.7 Sec. (24.2-36.6) 03/20/19 13:52 Sodium 141 mmol/L (137-145) 03/21/19 04:08 Potassium 3.7 mmol/L (3.6-5.0) 03/21/19 04:08 Chloride 106.6 mmol/L (98-107) 03/21/19 04:08 Carbon Dioxide 23 mmol/L (22-30) 03/21/19 04:08 Anion Gap 15 mmol/L 03/21/19 04:08 BUN 11 mg/dL (9-20) 03/21/19 04:08 Creatinine 0.9 mg/dL (0.8-1.5) 03/21/19 04:08 Estimated GFR > 60 ml/min 03/21/19 04:08 BUN/Creatinine Ratio 12 % 03/21/19 04:08 Glucose 96 mg/dL (75-100) 03/21/19 04:08 Hemoglobin A1c 6.4 % (4-6) H 03/20/19 22:27 Calcium 8.2 mg/dL (8.4-10.2) L 03/21/19 04:08 Total Bilirubin 0.40 mg/dL (0.1-1.2) 03/21/19 04:08 AST 19 units/L (5-40) 03/21/19 04:08 ALT 20 units/L (7-56) 03/21/19 04:08 Alkaline Phosphatase 67 units/L (35-129) 03/21/19 04:08 Total Creatine Kinase 565 units/L (55-170) H 03/20/19 13:52 Troponin T < 0.010 ng/mL (0.00-0.029) 03/21/19 04:08 Total Protein 6.7 g/dL (6.3-8.2) 03/21/19 04:08 Albumin 3.7 g/dL (3.9-5) L 03/21/19 04:08 Albumin/Globulin Ratio 1.2 % 03/21/19 04:08 Lipase 20 units/L (13-60) 03/20/19 13:52 Urine Color Yellow (Yellow) 03/20/19 14:14 Urine Turbidity Clear (Clear) 03/20/19 14:14 Urine pH 7.0 (5.0-7.0) 03/20/19 14:14 Ur Specific [place] 1.016 (1.003-1.030) 03/20/19 14:14 Urine Protein <15 mg/dl mg/dL (Negative) 03/20/19 14:14 Urine Glucose (UA) Neg mg/dL (Negative) 03/20/19 14:14 Urine Ketones Neg mg/dL (Negative) 03/20/19 14:14 Urine Blood Neg (Negative) 03/20/19 14:14 Urine Nitrite Neg (Negative) 03/20/19 14:14 Urine Bilirubin Neg (Negative) 03/20/19 14:14 Urine Urobilinogen < 2.0 mg/dL (<2.0) 03/20/19 14:14 Ur Leukocyte Esterase Neg (Negative) 03/20/19 14:14 Urine WBC (Auto) 1.0 /HPF (0.0-6.0) 03/20/19 14:14 Urine RBC (Auto) 3.0 /HPF (0.0-6.0) 03/20/19 14:14 U Epithel Cells (Auto) < 1.0 /HPF (0-13.0) 03/20/19 14:14 Urine Mucus Few /HPF 03/20/19 14:14 Urine Opiates Screen Presumptive negative 03/20/19 14:14 Urine Methadone Screen Presumptive negative 03/20/19 14:14 Ur Barbiturates Screen Presumptive negative 03/20/19 14:14 Ur Phencyclidine Scrn Presumptive negative 03/20/19 14:14 Ur Amphetamines Screen Presumptive negative 03/20/19 14:14 U Benzodiazepines Scrn Presumptive negative 03/20/19 14:14 Urine Cocaine Screen Presumptive negative 03/20/19 14:14 U Marijuana (THC) Screen Presumptive positive 03/20/19 14:14 Drugs of Abuse Note Disclamer 03/20/19 14:14 Active Medications - Current Medications Current Medications: Generic Name Dose Route Start Last Admin Trade Name Freq PRN Reason Stop Dose Admin Acetaminophen 650 mg 03/20/19 22:17 Tylenol PO Q4H PRN Pain MILD(1-3)/Fever >100.5/CLOUD Albuterol 2.5 mg 03/20/19 22:59 Proventil IH Q4HRT PRN Shortness Of Breath Buspirone HCl 10 mg 03/21/19 10:00 03/21/19 12:23 Buspar PO 10 mg BID LINN Administration Cyclobenzaprine HCl 10 mg 03/20/19 22:22 03/20/19 23:25 Flexeril PO 10 mg TID PRN Administration Muscle Spasm Heparin Sodium (Porcine) 5,000 unit 03/21/19 10:00 03/21/19 12:19 Heparin SUB-Q 5,000 unit Q12HR LINN Administration Hydralazine HCl 10 mg 03/21/19 10:30 03/21/19 12:18 Apresoline IV 10 mg Q4H PRN Administration Blood Pressure Hydralazine HCl 10 mg 03/21/19 16:17 Apresoline IV Q4HR PRN Blood Pressure Hydromorphone HCl 0.5 mg 03/20/19 22:17 Dilaudid IV Q3H PRN Pain , Severe (7-10) Labetalol HCl 10 mg 03/21/19 16:16 Labetalol IV Q4H PRN Blood Pressure Lorazepam 1 mg 03/21/19 07:00 Ativan IV Q4H PRN Anxiety Losartan Potassium 50 mg 03/21/19 17:00 Cozaar PO QDAY LINN Metoclopramide HCl 10 mg 03/20/19 22:17 Reglan IV Q6H PRN Nausea And Vomiting Metoprolol Tartrate 50 mg 03/21/19 22:00 Metoprolol PO BID LINN Ondansetron HCl 4 mg 03/20/19 22:17 Zofran IV Q8H PRN Nausea And Vomiting Oxycodone/Acetaminophen 1 tab 03/20/19 22:17 Percocet 5/325 PO Q6H PRN Pain, Moderate (4-6) Sodium Chloride 10 ml 03/21/19 10:00 03/21/19 12:19 Sodium Chloride Flush Syringe 10 Ml IV 10 ml BID LINN Administration Sodium Chloride 10 ml 03/20/19 22:17 03/20/19 23:25 Sodium Chloride Flush Syringe 10 Ml IV 10 ml PRN PRN Administration LINE FLUSH
[2019-03-21] MEDS: LOSARTAN 50 MG TAB PO SCH (17:34)
--- NOTE | 2019-03-21 18:25 | Consultation ---
History of Present Illness Consult date: 03/21/19 Consult reason: chest pain History of present illness: Patient is a 44-year-old man admitted with nonexertional chest pain. In the emergency room, ECG was normal sinus rhythm, left ventricular hypertrophy by voltage criteria, no acute ischemic changes. Extensive ER workup including CT of the chest was negative for pulmonary embolism, negative for dissection. A chest x-ray revealed normal cardiac silhouette, clear lungs with no infiltrates and no edema. Serial cardiac enzymes were negative. Today, he underwent an exercise stress test in which he exercised for 9 minutes of Rj protocol, completing stage III and achieving 10 metastases. There was no chest pain. There was no ST changes of ischemia. The exercise stress test was negative. Past History Past Medical History: hypertension Medications and Allergies Allergies Allergy/AdvReac Type Severity Reaction Status Date / Time No Known Allergies Allergy Verified 03/20/19 13:55 Home Medications Medication Instructions Recorded Confirmed Last Taken Type Sulfamethoxazole/Trimethoprim 1 each PO BID #6 tablet 01/16/18 Unknown Rx [Bactrim DS TAB] ALBUTEROL Inhaler(NF) [VENTOLIN 2 puff IH Q4H PRN #1 inha 08/14/18 Unknown Rx Inhaler(NF)] Azithromycin [Zithromax Z-TRISTON] 250 mg PO DAILY 5 Days #6 tab 08/14/18 Unknown Rx Benzonatate [Tessalon Perles] 100 mg PO Q8HR PRN #30 capsule 08/14/18 Unknown Rx Ibuprofen [Ibuprofen 800] 800 mg PO TID PRN #30 tablet 08/14/18 Unknown Rx dexAMETHasone [Decadron] 4 mg PO Q8H #12 tablet 08/14/18 Unknown Rx Cyclobenzaprine [Flexeril] 10 mg PO TID PRN #15 tablet 11/01/18 Unknown Rx HYDROcodone/APAP 5-325 [[place] 1 each PO Q6HR PRN #10 tablet 11/01/18 Unknown Rx 5/325] Active Meds: Active Medications Acetaminophen (Tylenol) 650 mg PO Q4H PRN PRN Reason: Pain MILD(1-3)/Fever >100.5/CLOUD Albuterol (Proventil) 2.5 mg IH Q4HRT PRN PRN Reason: Shortness Of Breath Alprazolam (Xanax) 0.25 mg PO Q12HR LINN Buspirone HCl (Buspar) 10 mg PO BID [facility] Last Admin: 03/21/19 12:23 Dose: 10 mg Documented by: Cyclobenzaprine HCl (Flexeril) 10 mg PO TID PRN PRN Reason: Muscle Spasm Last Admin: 03/20/19 23:25 Dose: 10 mg Documented by: Heparin Sodium (Porcine) (Heparin) 5,000 unit SUB-Q Q12HR [facility] Last Admin: 03/21/19 12:19 Dose: 5,000 unit Documented by: Hydralazine HCl (Apresoline) 10 mg IV Q4H PRN PRN Reason: Blood Pressure Last Admin: 03/21/19 12:18 Dose: 10 mg Documented by: Hydralazine HCl (Apresoline) 10 mg IV Q4HR PRN PRN Reason: Blood Pressure Hydromorphone HCl (Dilaudid) 0.5 mg IV Q3H PRN PRN Reason: Pain , Severe (7-10) Labetalol HCl (Labetalol) 10 mg IV Q4H PRN PRN Reason: Blood Pressure Lorazepam (Ativan) 1 mg IV Q4H PRN PRN Reason: Anxiety Losartan Potassium (Cozaar) 50 mg PO QDAY [facility] Last Admin: 03/21/19 17:34 Dose: 50 mg Documented by: Metoclopramide HCl (Reglan) 10 mg IV Q6H PRN PRN Reason: Nausea And Vomiting Metoprolol Tartrate (Metoprolol) 50 mg PO BID [facility] Ondansetron HCl (Zofran) 4 mg IV Q8H PRN PRN Reason: Nausea And Vomiting Oxycodone/Acetaminophen (Percocet 5/325) 1 tab PO Q6H PRN PRN Reason: Pain, Moderate (4-6) Sertraline HCl (Zoloft) 50 mg PO QDAY [facility] Sodium Chloride (Sodium Chloride Flush Syringe 10 Ml) 10 ml IV BID [facility] Last Admin: 03/21/19 12:19 Dose: 10 ml Documented by: Sodium Chloride (Sodium Chloride Flush Syringe 10 Ml) 10 ml IV PRN PRN PRN Reason: LINE FLUSH Last Admin: 03/20/19 23:25 Dose: 10 ml Documented by: Review of Systems Cardiovascular: chest pain, no orthopnea, no palpitations, no rapid/irregular heart beat, no edema, no syncope, no lightheadedness, no shortness of breath Physical Examination Vital Signs Temp Pulse Resp BP Pulse Ox 97.4 F L 85 26 H 153/92 99 03/20/19 13:23 03/20/19 13:23 03/20/19 13:23 03/20/19 13:23 03/20/19 13:23 General appearance: no acute distress HEENT: Positive: PERRL Neck: Positive: neck supple Cardiac: Positive: Reg Rate and Rhythm Lungs: Positive: Decreased Breath Sounds Neuro: Positive: Grossly Intact Abdomen: Positive: Soft Male genitourinary: Positive: deferred Skin: Positive: Clear Extremities: Absent: edema Results 03/21/19 04:08 03/21/19 04:08 Cardiac Enzymes 03/21/19 Range/Units 04:08 AST 19 (5-40) units/L CBC 03/21/19 Range/Units 04:08 WBC 6.0 (4.5-11.0) K/mm3 RBC 4.41 (3.65-5.03) M/mm3 Hgb 12.7 (11.8-15.2) gm/dl Hct 39.2 (35.5-45.6) % Plt Count 176 (140-440) K/mm3 Lymph # 2.2 (1.2-5.4) K/mm3 Power # 0.7 (0.0-0.8) K/mm3 Eos # 0.1 (0.0-0.4) K/mm3 Baso # 0.0 (0.0-0.1) K/mm3 Comprehensive Metabolic Panel 03/21/19 Range/Units 04:08 Sodium 141 (137-145) mmol/L Potassium 3.7 (3.6-5.0) mmol/L Chloride 106.6 (98-107) mmol/L Carbon Dioxide 23 (22-30) mmol/L BUN 11 (9-20) mg/dL Creatinine 0.9 (0.8-1.5) mg/dL Glucose 96 (75-100) mg/dL Calcium 8.2 L (8.4-10.2) mg/dL AST 19 (5-40) units/L ALT 20 (7-56) units/L Alkaline Phosphatase 67 (35-129) units/L Total Protein 6.7 (6.3-8.2) g/dL Albumin 3.7 L (3.9-5) g/dL EKG interpretations - Telemetry EKG Rhythm: Sinus Rhythm Assessment and Plan - Patient Problems (1) Chest pain Current Visit: Yes Status: Acute Qualifiers: Chest pain type: unspecified Qualified Code(s): R07.9 - Chest pain, unspecified Plan to address problem: Atypical chest pain, ECG without acute changes, negative cardiac enzymes, normal exercise ECG stress test. No further cardiac chest pain workup is indicated, stable for cardiac discharge.
[2019-03-21] MEDS: ALPRAZolam 0.25 MG TAB PO SCH (22:24)
[2019-03-21] MEDS: METOPROLOL TARTRATE 50 MG TAB PO SCH (22:24)
--- NOTE | 2019-03-22 08:58 | Progress Note ---
Assessment and Plan - Patient Problems (1) Chest pain Current Visit: Yes Status: Acute Qualifiers: Qualified Code(s): R07.9 - Chest pain, unspecified Plan to address problem: Atypical chest pain ECG was normal sinus rhythm, left ventricular hypertrophy, no acute ischemic changes. CT of the chest was negative for pulmonary embolism, negative for dissection. Chest x-ray revealed normal cardiac silhouette, clear lungs with no infiltrates and no edema. Serial cardiac enzymes were negative. Exercise stress test was negative. No further cardiac workup indicated. We will sign off. Subjective Date of service: 03/22/19 Interval history: Patient is sitting up in the bedside chair. He has no complaints. Discharge was held due to elevated blood pressure. Objective Vital Signs Temp Pulse Resp BP Pulse Ox 03/22/19 07:14 18 03/22/19 05:00 77 03/22/19 03:00 18 03/22/19 02:00 70 03/21/19 22:24 99 H 153/102 03/21/19 20:17 99 H 03/21/19 17:34 99 H 153/102 03/21/19 16:16 98.5 F 20 153/102 03/21/19 15:14 18 03/21/19 12:57 99 H 164/103 94 03/21/19 12:18 94 H 169/117 03/21/19 12:17 89 169/117 95 03/21/19 11:31 157/112 03/21/19 11:29 164/113 03/21/19 11:28 150/105 03/21/19 11:26 138/111 03/21/19 10:06 149/108 03/21/19 10:04 145/106 - Physical Examination General: No Apparent Distress HEENT: Positive: PERRL Neck: Positive: neck supple Cardiac: Positive: Reg Rate and Rhythm Lungs: Positive: Decreased Breath Sounds Neuro: Positive: Grossly Intact Abdomen: Positive: Soft Extremities: Absent: edema
[2019-03-22] MEDS: HEPARIN 5,000 UNIT/1 ML VIAL SUB-Q SCH (09:42)
[2019-03-22] MEDS: METOPROLOL TARTRATE 50 MG TAB PO SCH (09:43)
[2019-03-22] MEDS: LOSARTAN 50 MG TAB PO SCH (09:43)
[2019-03-22] MEDS: ALPRAZolam 0.25 MG TAB PO SCH (09:43)
[2019-03-22] MEDS: busPIRone 10 MG TAB PO SCH (09:44)
[2019-03-22] MEDS ORDERED: SERTRALINE 25 MG TAB PO SCH (10:00)
[2019-03-22 10:05] VITALS: BP 153/104
--- NOTE | 2019-03-22 13:27 | Discharge Summary ---
Providers - Providers Date of Admission: 03/20/19 16:12 Date of discharge: 03/22/19 Attending physician: TODD AGUILAR 03/21/19 16:28 Consult to Mental Health [CONS] Urgent Reason For Exam: anxiety/panic Place consult to:: mental health Notified:: Lyssa BAJWA Was contact made?: Yes If yes, spoke with:: Johanna-mental health is aware of consult Primary care physician: [employer] Hospitalization Condition: Stable Hospital course: Patient is a 44 yo man with a history of tobacco dependency who presents with chest pains. It appears he had anxiety attack in ER. CTA chest unremarkable for PE and Stress test negative for ischemia. His symptoms are most likely related to anxiety. Chest pain most likely related to anxiety Anxiety disorder: start Xanax and Zoloft Malignant hypertension, which is new onset hypertension, did not respond to clonidine: iv labetalol prn, start Metoprolol and Losartan History of asthma: prn albuterol Hyperglycemia, a1c 6.4, borderline DM: counseling done, I gave him [facility] for PCP, he will consider starting Metformin Marijuana use and tobacco dependency: pet adoption counselor on stopping Obese, bmi 36.3: lifestyle modification stressed DVT prophylaxis On Heparin and GI prophylaxis Disposition: DC-01 TO HOME OR SELFCARE Time spent for discharge: 31 minutes Core Measure Documentation - Palliative Care Palliative Care/ Comfort Measures: Not Applicable - Core Measures Any of the following diagnoses?: none - VTE Discharge Requirements Deep Vein Thrombosis/Pulmonary Embolism Present on Admission: No Has pt received <5 days of overlap therapy or INR<2.0: No Anticoagulant overlap therapy prescribed at discharge: No Contraindication No Overlap Therapy order at DC: Not Indicated Exam - Physical Exam Narrative exam: Gen: WDWN, NAD, Awake, Alert, Orientated x 3, bmi 36.3 HEENT: NCAT, EOMI, PERRL, OP Clear Neck: supple, no adenopathy, no thyromegaly, no JVD CVS/Heart: RRR, normal S1S2, pulses present bilaterally Chest/Lungs: CTA B, Symmetrical chest expansion, good air entry bilaterally, reproducible cw tenderness GI/Abdomen: soft, NTND, good bowel sounds, no guarding or rebound /Bladder: no suprapubic tenderness, no CVA or paraspinal tenderness Extermity/Skin: no c/c/e, no obvious rash MSK: FROM x 4 Neuro: CN 2-12 grossly intact, no new focal deficits Psych: anxious - Constitutional Vitals: Temp Pulse Resp BP Pulse Ox 98.3 F 74 18 153/104 92 03/22/19 05:09 03/22/19 08:39 03/22/19 07:14 03/22/19 08:39 03/22/19 08:39 Plan Activity: other (no strenous activity unless cleared by PCP) Diet: low salt Special Instructions: record daily BP diary, record blood sugar diary (daily) Follow up with: NATALIYA KHALIL MD [Staff Physician] - 3-5 Days PRIMARY CARE, [Primary Care Provider] - 3-5 Days
== END 2019-03-22 11:43 | disposition home or self-care (01) ==
LOC: ED 13:17 → 4A 16:12
PROVIDERS: ADMIT Internal Medicine; ATTEND Internal Medicine
DX: R07.89 Other chest pain (principal); J45.909 Unspecified asthma, uncomplicated; F41.1 Generalized anxiety disorder; M19.90 Unspecified osteoarthritis, unspecified site; F17.200 Nicotine dependence, unspecified, uncomplicated; Z90.49 Acquired absence of other specified parts of digestive tract
CPT/HCPCS: 36415; 71045; 71275; 80053; 80307; 81001; 82550; 83036; 83690; 84484; 85025; 85610; 85730; 93005; 93010; 93017; 96372; 96374; 96375; 96376; 99284; G0378; J0360; J1644; J2060; J2270; J2405; J7030; Q9967

== ENCOUNTER 2019-04-01 09:05 | Outpatient (CLI) | payer BC ==
[2019-04-01 12:13] LABS: Basophils % (Auto) 0.3 % (0.0-1.8); Eosinophils # (Auto) 0.2 K/mm3 (0.0-0.4); Eosinophils % (Auto) 2.8 % (0.0-4.3); Lymphocytes # (Auto) 2.8 K/mm3 (1.2-5.4); Lymphocytes % (Auto) 48.4 % (13.4-35.0); Mean Corpuscular HGB Conc 33 % (32-34); Mean Corpuscular Volume 88 fl (84-94); Monocytes # (Auto) 0.7 K/mm3 (0.0-0.8); Monocytes % (Auto) 11.4 % (0.0-7.3); Platelet Count 194 K/mm3 (140-440); Red Blood Count 4.87 M/mm3 (3.65-5.03); Red Cell Distribution Width 14.3 % (13.2-15.2)
[2019-04-01 12:39] LABS: Alanine Aminotransferase 22 units/L (7-56); Albumin 4.2 g/dL (3.9-5); BUN/Creatinine Ratio 18; Blood Urea Nitrogen 21 mg/dL (9-20); Calcium 8.9 mg/dL (8.4-10.2); Hemolysis Index 7; LDL Cholesterol,Direct 103 mg/dL (50-130)
[2019-04-01 12:53] LABS: Chol/HDL Ratio 4.27 %; HDL Cholesterol 33 mg/dL (40-59)
== END 2019-04-01 09:06 | disposition home or self-care (01) ==
LOC: LAB 09:05
PROVIDERS: ATTEND Internal Medicine
DX: Z13.21 Encounter for screening for nutritional disorder (principal); Z13.220 Encounter for screening for lipoid disorders
CPT/HCPCS: 36415; 80053; 80061; 82607; 82652; 83036; 84443; 85025

== ENCOUNTER 2019-12-10 17:11 | Emergency (ER) | payer BC ==
[2019-12-10 17:49] VITALS: BP 152/108
[2019-12-10] MEDS ORDERED: FAMOTIDINE 20 MG TAB PO ONE (19:48)
[2019-12-10] MEDS ORDERED: LIDOCAINE VISCOUS 2% 15 ML ORAL LIQD PO ONE (19:48)
[2019-12-10] MEDS ORDERED: ALUM-MAG HYDROXIDE-SIMETHICONE 200-200-20MG/5ML ORAL LIQD 30 ML PO ONE (19:48)
[2019-12-10 20:14] LABS: Basophils % (Auto) 0.3 % (0.0-1.8); Eosinophils # (Auto) 0.1 K/mm3 (0.0-0.4); Eosinophils % (Auto) 1.9 % (0.0-4.3); Hematocrit 40.8 % (35.5-45.6); Hemoglobin 13.1 gm/dl (11.8-15.2); Lymphocytes # (Auto) 2.2 K/mm3 (1.2-5.4); Lymphocytes % (Auto) 40.4 % (13.4-35.0); Mean Corpuscular HGB Conc 32 % (32-34); Mean Corpuscular Volume 90 fl (84-94); Monocytes # (Auto) 0.5 K/mm3 (0.0-0.8); Monocytes % (Auto) 9.3 % (0.0-7.3); Platelet Count 174 K/mm3 (140-440); Red Blood Count 4.51 M/mm3 (3.65-5.03); Red Cell Distribution Width 14.4 % (13.2-15.2)
--- NOTE | 2019-12-10 20:21 | XRay Report ---
XR chest routine 2V INDICATION / CLINICAL INFORMATION: Chest pain COMPARISON: 10/01/2019 FINDINGS: SUPPORT DEVICES: None. HEART / MEDIASTINUM: No significant abnormality. LUNGS / PLEURA: Lungs are clear. Costophrenic sulci are sharp. No pneumothorax. ADDITIONAL FINDINGS: No significant additional findings. IMPRESSION: 1. No acute findings. Signer Name: Mo tSoll MD Signed: 12/10/2019 8:16 PM Workstation Name: [id number]
[2019-12-10 20:32] LABS: Alanine Aminotransferase 16 units/L (7-56); BUN/Creatinine Ratio 11; Blood Urea Nitrogen 12 mg/dL (9-20); Calcium 8.7 mg/dL (8.4-10.2); Hemolysis Index 4
--- NOTE | 2019-12-10 20:51 | Emergency Department Report ---
ED General Adult HPI - General Chief complaint: Headache Stated complaint: SHARP PAIN IN HEAD Source: patient Mode of arrival: Ambulatory Limitations: No Limitations - History of Present Illness Initial comments: Patient is a 44-year-old -Central African male with a history of hypertension and osteoarthritis who presents to the ED with complaint of acute onset persistent epigastric pain that radiates to the sternal area with sharp pain and headache for the last 2 days. Patient states that he has been taking his blood pressure medications with no other complaints although he admits to not having taken his blood pressure medications and the last 24 hours. Patient denies d izziness, syncope, chest pain, shortness of breath, fever, chills, cough, nausea, vomiting, diarrhea, dysuria, urinary frequency and urgency or traumatic injury, hemoptysis, hematemesis or back pain. MD Complaint: Headache; Epigastric and sternal pain -: Sudden, days(s) (2) Location: head, abdomen Radiation: non-radiation Severity scale (0 -10): 6 Quality: aching, sharp Consistency: constant Improves with: none Worsens with: none Associated Symptoms: denies other symptoms, headaches. denies: confusion, chest pain, cough, diaphoresis, fever/chills, loss of appetite, malaise, nausea/vomiting, rash, seizure, shortness of breath, syncope, weakness Treatments Prior to Arrival: none - Related Data Previous Rx's Medication Instructions Recorded Last Taken Type Sulfamethoxazole/Trimethoprim 1 each PO BID #6 tablet 01/16/18 Unknown Rx [Bactrim DS TAB] ALBUTEROL Inhaler(NF) [VENTOLIN 2 puff IH Q4H PRN #1 inha 08/14/18 Unknown Rx Inhaler(NF)] Azithromycin [Zithromax Z-TRISTON] 250 mg PO DAILY 5 Days #6 tab 08/14/18 Unknown Rx Benzonatate [Tessalon Perles] 100 mg PO Q8HR PRN #30 capsule 08/14/18 Unknown Rx Ibuprofen [Ibuprofen 800] 800 mg PO TID PRN #30 tablet 08/14/18 Unknown Rx dexAMETHasone [Decadron] 4 mg PO Q8H #12 tablet 08/14/18 Unknown Rx Cyclobenzaprine [Flexeril] 10 mg PO TID PRN #15 tablet 11/01/18 Unknown Rx HYDROcodone/APAP 5-325 [[place] 1 each PO Q6HR PRN #10 tablet 11/01/18 Unknown Rx 5/325] Albuterol Mdi (or & Nicu Only) 2 puff IH QID PRN #8.5 gram 10/01/19 Unknown Rx [ProAir HFA Inhaler] Famotidine [Pepcid] 20 mg PO BID #30 tablet 10/01/19 Unknown Rx Ibuprofen [Motrin 800 MG tab] 800 mg PO Q8HR PRN #30 tablet 10/01/19 Unknown Rx predniSONE [Deltasone] 40 mg PO QDAY 5 Days #10 tab 10/01/19 Unknown Rx Famotidine [Pepcid] 20 mg PO Q12H #60 tablet 12/10/19 Unknown Rx Naproxen 500 mg PO Q12H PRN #30 tablet 12/10/19 Unknown Rx Allergies Allergy/AdvReac Type Severity Reaction Status Date / Time No Known Allergies Allergy Verified 03/20/19 13:55 ED Review of Systems ROS: Stated complaint: SHARP PAIN IN HEAD Other details as noted in HPI Constitutional: denies: chills, fever Eyes: denies: eye pain, eye discharge, vision change ENT: denies: ear pain, throat pain Respiratory: denies: cough, shortness of breath, wheezing Cardiovascular: denies: chest pain, palpitations Endocrine: no symptoms reported Gastrointestinal: abdominal pain (Epigastric). denies: nausea, vomiting, diarrhea Genitourinary: denies: urgency, dysuria Musculoskeletal: denies: back pain, joint swelling, arthralgia Skin: denies: rash, lesions Neurological: headache. denies: weakness, paresthesias Psychiatric: anxiety. denies: depression Hematological/Lymphatic: denies: easy bleeding, easy bruising ED Past Medical Hx - Past Medical History Hx Hypertension: Yes Hx Arthritis: Yes Hx Asthma: Yes - Surgical History Additional Surgical History: Hernia Surgery - Social History Smoking Status: Current Every Day Smoker - Medications Home Medications: Home Medications Medication Instructions Recorded Confirmed Last Taken Type Sulfamethoxazole/Trimethoprim 1 each PO BID #6 tablet 01/16/18 Unknown Rx [Bactrim DS TAB] ALBUTEROL Inhaler(NF) [VENTOLIN 2 puff IH Q4H PRN #1 inha 08/14/18 Unknown Rx Inhaler(NF)] Azithromycin [Zithromax Z-TRISTON] 250 mg PO DAILY 5 Days #6 tab 08/14/18 Unknown Rx Benzonatate [Tessalon Perles] 100 mg PO Q8HR PRN #30 capsule 08/14/18 Unknown Rx Ibuprofen [Ibuprofen 800] 800 mg PO TID PRN #30 tablet 08/14/18 Unknown Rx dexAMETHasone [Decadron] 4 mg PO Q8H #12 tablet 08/14/18 Unknown Rx Cyclobenzaprine [Flexeril] 10 mg PO TID PRN #15 tablet 11/01/18 Unknown Rx HYDROcodone/APAP 5-325 [[place] 1 each PO Q6HR PRN #10 tablet 11/01/18 Unknown Rx 5/325] Albuterol Mdi (or & Nicu Only) 2 puff IH QID PRN #8.5 gram 10/01/19 Unknown Rx [ProAir HFA Inhaler] Famotidine [Pepcid] 20 mg PO BID #30 tablet 10/01/19 Unknown Rx Ibuprofen [Motrin 800 MG tab] 800 mg PO Q8HR PRN #30 tablet 10/01/19 Unknown Rx predniSONE [Deltasone] 40 mg PO QDAY 5 Days #10 tab 10/01/19 Unknown Rx Famotidine [Pepcid] 20 mg PO Q12H #60 tablet 12/10/19 Unknown Rx Naproxen 500 mg PO Q12H PRN #30 tablet 12/10/19 Unknown Rx ED Physical Exam - General Limitations: No Limitations General appearance: alert, in no apparent distress - Head Head exam: Present: atraumatic, normocephalic, normal inspection - Eye Eye exam: Present: normal appearance, PERRL, EOMI Pupils: Present: normal accommodation - ENT ENT exam: Present: normal exam, normal orophraynx, mucous membranes moist, TM's normal bilaterally, normal external ear exam - Neck Neck exam: Present: normal inspection, full ROM. Absent: tenderness - Respiratory Respiratory exam: Present: normal lung sounds bilaterally, chest wall tenderness (Palpable reproducible epigastric and sternal tenderness). Absent: respiratory distress, wheezes, rales, rhonchi - Cardiovascular Cardiovascular Exam: Present: regular rate, normal rhythm, normal heart sounds. Absent: systolic murmur, diastolic murmur, rubs, gallop - GI/Abdominal GI/Abdominal exam: Present: soft, tenderness (Palpable mild epigastric tenderness), normal bowel sounds. Absent: guarding, rebound, hyperactive bowel sounds, hypoactive bowel sounds - Extremities Exam Extremities exam: Present: normal inspection, full ROM, normal capillary refill - Back Exam Back exam: Present: normal inspection, full ROM. Absent: tenderness, CVA t enderness (L), muscle spasm, paraspinal tenderness - Neurological Exam Neurological exam: Present: alert, oriented X3, CN II-XII intact, normal gait, reflexes normal - Psychiatric Psychiatric exam: Present: normal affect, normal mood - Skin Skin exam: Present: warm, dry, intact, normal color. Absent: rash ED Course Vital Signs 12/10/19 17:47 Temperature 98.0 F Pulse Rate 68 Respiratory 16 Rate Blood Pressure 152/108 O2 Sat by Pulse 98 Oximetry ED Medical Decision Making - Lab Data Result diagrams: 12/10/19 19:53 12/10/19 19:53 - Radiology Data Radiology results: report reviewed, image reviewed Findings [facility] [address] [place] [address] XRay Report Signed Patient: HARISH GOODWIN MR#: [id number] : 1975 Acct:[id number] Age/Sex: 44 / M ADM Date: 12/10/19 Loc: ED Attending Dr: Ordering Physician: ERICK BRODY Date of Service: 12/10/19 Procedure(s): XR chest routine 2V Accession Number(s): [id number] cc: ERICK BRODY Fluoro Time In Minutes: XR chest routine 2V INDICATION / CLINICAL INFORMATION: Chest pain COMPARISON: 10/01/2019 FINDINGS: SUPPORT DEVICES: None. HEART / MEDIASTINUM: No significant abnormality. LUNGS / PLEURA: Lungs are clear. Costophrenic sulci are sharp. No pneumothorax. ADDITIONAL FINDINGS: No significant additional findings. IMPRESSION: 1. No acute findings. Signer Name: Mo Stoll MD Signed: 12/10/2019 8:16 PM Workstation Name: [id number] Transcribed By: SHELL Dictated By: Mo Stoll MD Electronically Authenticated By: Mo Stoll MD Signed Date/Time: 12/10/192015 DD/ 15 TD/TT: - Medical Decision Making This is a 44-year-old -[place] male with a history of hypertension and osteoarthritis who presents to the ED with complaint of acute onset persistent epigastric pain that radiates to the sternal area with sharp pain and headache for the last 2 days. Patient states that he has been taking his blood pressure medications with no other complaints although he admits to not having taken his blood pressure medications and the last 24 hours. In the ED, patient is alert and oriented x3 and is not in distress. Patient was treated for pain in the ED and was given antacids. Lab test results were reviewed and are all nonactionable. Chest x-ray shows no acute cardiopulmonary abnormalities or pneumonitis. Patient's heart score is 1. On reevaluation, patient felt better and was discharged home on medications for GERD and pain. Patient was discharge d home and advised to follow-up with his primary care physician in 5 to 7 days for reevaluation or return to the ED immediately if symptoms get worse. - Differential Diagnosis Costochondritis; GERD; Muscle strain; Anxiety; CAD; Gastritis Critical care attestation.: If time is entered above; I have spent that time in minutes in the direct care of this critically ill patient, excluding procedure time. ED Disposition Clinical Impression: Acute costochondritis Acute tension headache Qualifiers: Intractability: not intractable Qualified Code(s): G44.209 - Tension-type headache, unspecified, not intractable GERD (gastroesophageal reflux disease) Qualifiers: Esophagitis presence: without esophagitis Qualified Code(s): K21.9 - Gastro- esophageal reflux disease without esophagitis Disposition: DC-01 TO HOME OR SELFCARE Is pt being admited?: No Does the pt Need Aspirin: No Condition: Stable Instructions: Costochondritis (ED), Gastroesophageal Reflux Disease (ED), Tension Headache (ED) Additional Instructions: All lab test results are unremarkable as well as imaging reports. Take medication with food, drink plenty of fluids and follow-up with your primary care physician in 7 to 10 days for reevaluation. Return to the ED immediately if symptoms get worse. Prescriptions: Naproxen 500 mg PO Q12H PRN #30 tablet PRN Reason: Pain , Severe (7-10) Famotidine [Pepcid] 20 mg PO Q12H #60 tablet Referrals: [facility] [Provider Group] - 3-5 Days Time of Disposition: 20:49 Print Language: MONTENEGRIN
== END 2019-12-10 21:05 | disposition home or self-care (01) ==
LOC: ED 17:11
DX: K21.9 Gastro-esophageal reflux disease without esophagitis (principal); M94.0 Chondrocostal junction syndrome [Tietze]; G44.209 Tension-type headache, unspecified, not intractable; I10 Essential (primary) hypertension; M13.88 Other specified arthritis, other site; J45.909 Unspecified asthma, uncomplicated; F17.200 Nicotine dependence, unspecified, uncomplicated; Z79.899 Other long term (current) drug therapy; Z98.890 Other specified postprocedural states
CPT/HCPCS: 36415; 71046; 80053; 83690; 84484; 85025; 93005

== ENCOUNTER 2020-07-02 02:42 | Emergency (ER) | payer BC ==
[2020-07-02] MEDS ORDERED: SODIUM CHLORIDE 0.9% 1000 ML 1,000 ML IV ONE (03:30)
--- NOTE | 2020-07-02 03:45 | Emergency Department Report ---
ED Chest Pain HPI - General Chief Complaint: Chest Pain Stated Complaint: CHEST PAIN Time Seen by Provider: 07/02/20 03:24 Source: patient, EMS Mode of arrival: Stretcher Limitations: No Limitations - History of Present Illness Initial Comments: This is a 45-year-old -Greek male who presents to the emergency department with a complaint of some weakness and chest pain that started about 30 minutes prior to arrival. The patient says that he has a history of a few previous episodes in which the patient began having some leg weakness, lighthe adedness, and passed out. He says that he was previously evaluated at [facility], as well as a [facility], for the same symptoms. The patient was at work this evening when he began having the same symptoms. He says that he got into his car and was trying to drive himself back towards his home but "I could not make it." He pulled off the road and went into a store in which he sat down and "fell out", but the patient denies actually losing consciousness. He has a past medical history of asthma. He is an occasional marijuana smoker but denies any use this evening. He denies any significant alcohol use and none this evening as well. The patient took a full dose aspirin prior to arrival. - Related Data Previous Rx's Medication Instructions Recorded Last Taken Type Sulfamethoxazole/Trimethoprim 1 each PO BID #6 tablet 01/16/18 Unknown Rx [Bactrim DS TAB] ALBUTEROL Inhaler(NF) [VENTOLIN 2 puff IH Q4H PRN #1 inha 08/14/18 Unknown Rx Inhaler(NF)] Azithromycin [Zithromax Z-TRISTON] 250 mg PO DAILY 5 Days #6 tab 08/14/18 Unknown Rx Benzonatate [Tessalon Perles] 100 mg PO Q8HR PRN #30 capsule 08/14/18 Unknown Rx Ibuprofen [Ibuprofen 800] 800 mg PO TID PRN #30 tablet 08/14/18 Unknown Rx dexAMETHasone [Decadron] 4 mg PO Q8H #12 tablet 08/14/18 Unknown Rx Cyclobenzaprine [Flexeril] 10 mg PO TID PRN #15 tablet 11/01/18 Unknown Rx HYDROcodone/APAP 5-325 [[place] 1 each PO Q6HR PRN #10 tablet 11/01/18 Unknown Rx 5/325] Albuterol Mdi (or & Nicu Only) 2 puff IH QID PRN #8.5 gram 10/01/19 Unknown Rx [ProAir HFA Inhaler] Famotidine [Pepcid] 20 mg PO BID #30 tablet 10/01/19 Unknown Rx Ibuprofen [Motrin 800 MG tab] 800 mg PO Q8HR PRN #30 tablet 10/01/19 Unknown Rx predniSONE [Deltasone] 40 mg PO QDAY 5 Days #10 tab 10/01/19 Unknown Rx Famotidine [Pepcid] 20 mg PO Q12H #60 tablet 12/10/19 Unknown Rx Naproxen 500 mg PO Q12H PRN #30 tablet 12/10/19 Unknown Rx Allergies Allergy/AdvReac Type Severity Reaction Status Date / Time No Known Allergies Allergy Verified 03/20/19 13:55 Heart Score - HEART Score History: Slightly suspicious EKG: Normal Age: 45-65 Risk factors: No known risk factors Troponin: < normal limit HEART Score: 1 - EKG Read Time Time EKG Completed: 02:52 EKG Read Time: 02:53 - Critical Actions Critical Actions: 0-3 pts:0.9-1.7%risk of adverse cardiac event.Candidate for discharge ED Review of Systems ROS: Stated complaint: CHEST PAIN Other details as noted in HPI Comment: All other systems reviewed and negative Constitutional: denies: chills, fever Eyes: denies: eye pain, vision change ENT: denies: ear pain, throat pain Respiratory: denies: cough, wheezing Cardiovascular: chest pain, syncope (near syncope) Gastrointestinal: denies: abdominal pain, vomiting Genitourinary: denies: dysuria, discharge Musculoskeletal: denies: back pain, arthralgia Skin: denies: rash, lesions Neurological: numbness. denies: headache ED Past Medical Hx - Past Medical History Hx Hypertension: Yes Hx Arthritis: Yes Hx Asthma: Yes - Surgical History Additional Surgical History: Hernia Surgery - Social History Smoking Status: Never Smoker Substance Use Type: Marijuana - Medications Home Medications: Home Medications Medication Instructions Recorded Confirmed Last Taken Type Sulfamethoxazole/Trimethoprim 1 each PO BID #6 tablet 01/16/18 Unknown Rx [Bactrim DS TAB] ALBUTEROL Inhaler(NF) [VENTOLIN 2 puff IH Q4H PRN #1 inha 08/14/18 Unknown Rx Inhaler(NF)] Azithromycin [Zithromax Z-TRISTON] 250 mg PO DAILY 5 Days #6 tab 08/14/18 Unknown Rx Benzonatate [Tessalon Perles] 100 mg PO Q8HR PRN #30 capsule 08/14/18 Unknown Rx Ibuprofen [Ibuprofen 800] 800 mg PO TID PRN #30 tablet 08/14/18 Unknown Rx dexAMETHasone [Decadron] 4 mg PO Q8H #12 tablet 08/14/18 Unknown Rx Cyclobenzaprine [Flexeril] 10 mg PO TID PRN #15 tablet 11/01/18 Unknown Rx HYDROcodone/APAP 5-325 [[place] 1 each PO Q6HR PRN #10 tablet 11/01/18 Unknown Rx 5/325] Albuterol Mdi (or & Nicu Only) 2 puff IH QID PRN #8.5 gram 10/01/19 Unknown Rx [ProAir HFA Inhaler] Famotidine [Pepcid] 20 mg PO BID #30 tablet 10/01/19 Unknown Rx Ibuprofen [Motrin 800 MG tab] 800 mg PO Q8HR PRN #30 tablet 10/01/19 Unknown Rx predniSONE [Deltasone] 40 mg PO QDAY 5 Days #10 tab 10/01/19 Unknown Rx Famotidine [Pepcid] 20 mg PO Q12H #60 tablet 12/10/19 Unknown Rx Naproxen 500 mg PO Q12H PRN #30 tablet 12/10/19 Unknown Rx ED Physical Exam - General Limitations: No Limitations - Other Other exam information: GENERAL: The patient is well-developed well-nourished. HENT: Normocephalic. Atraumatic. Patient has moist mucous membranes. EYES: Extraocular motions are intact. Pupils equal reactive to light bilaterally. No nystagmus. NECK: Supple. Trachea is midline. CHEST/LUNGS: Clear to auscultation. There is no respiratory distress noted. HEART/CARDIOVASCULAR: Regular. There is no tachycardia. There is no murmur. ABDOMEN: Abdomen is soft, nontender. Patient has normal bowel sounds. There is no abdominal distention. SKIN: Skin is warm and dry. NEURO: The patient is awake, alert, and oriented. The patient is cooperative. The patient has no focal neurologic deficits. Normal speech. Cranial nerves II through XII grossly intact. No facial asymmetry. No pronator drift or dysmetria. MUSCULOSKELETAL: There is no tenderness or deformity. There is no limitation range of motion. ED Course Vital Signs 07/02/20 07/02/20 07/02/20 02:45 03:01 03:30 Temperature 98.7 F Pulse Rate 79 83 Respiratory 18 18 12 Rate Blood Pressure 150/103 142/110 O2 Sat by Pulse 97 97 Oximetry 07/02/20 07/02/20 07/02/20 04:00 04:30 05:00 Temperature Pulse Rate 69 73 78 Respiratory 14 14 20 Rate Blood Pressure 147/103 133/88 128/87 O2 Sat by Pulse 91 94 95 Oximetry 07/02/20 07/02/20 05:30 06:00 Temperature Pulse Rate 76 74 Respiratory 14 16 Rate Blood Pressure 134/89 128/79 O2 Sat by Pulse 93 95 Oximetry CARLTON score - Carlton Score Age > 65: (0) No Aspirin use within the Past 7 Days: (0) No 3 or more CAD Risk Factors: (0) No 2 or more Angina events in past 24 hrs: (1) Yes Known CAD with more than 50% Stenosis: (0) No Elevated Cardiac Markers: (0) No ST Deviation Greater than 0.5mm: (0) No CARLTON Score: 1 ED Medical Decision Making - Lab Data Result diagrams: 07/02/20 03:47 07/02/20 03:47 Lab Results 07/02/20 07/02/20 07/02/20 Range/Units 03:47 03:47 03:47 WBC 5.4 (4.5-11.0) K/mm3 RBC 4.59 (3.65-5.03) M/mm3 Hgb 13.7 (11.8-15.2) gm/dl Hct 41.1 (35.5-45.6) % MCV 90 (84-94) fl MCH 30 (28-32) pg MCHC 33 (32-34) % RDW 13.8 (13.2-15.2) % Plt Count 156 (140-440) K/mm3 Lymph % (Auto) 23.3 (13.4-35.0) % [place] % (Auto) 9.2 H (0.0-7.3) % Eos % (Auto) 1.0 (0.0-4.3) % Baso % (Auto) 0.7 (0.0-1.8) % Lymph # (Auto) 1.3 (1.2-5.4) K/mm3 [place] # (Auto) 0.5 (0.0-0.8) K/mm3 Eos # (Auto) 0.1 (0.0-0.4) K/mm3 Baso # (Auto) 0.0 (0.0-0.1) K/mm3 Seg Neutrophils % 65.8 (40.0-70.0) % Seg Neutrophils # 3.6 (1.8-7.7) K/mm3 PT 13.5 (12.2-14.9) Sec. INR 1.04 (0.87-1.13) D-Dimer (0-234) ng/mlDDU Sodium 139 (137-145) mmol/L Potassium 3.7 (3.6-5.0) mmol/L Chloride 103.9 (98-107) mmol/L Carbon Dioxide 27 (22-30) mmol/L Anion Gap 12 mmol/L BUN 19 (9-20) mg/dL Creatinine 1.1 (0.8-1.3) mg/dL Estimated GFR > 60 ml/min BUN/Creatinine Ratio 17 % Glucose 110 H (75-100) mg/dL Calcium 8.3 L (8.4-10.2) mg/dL Magnesium (1.7-2.3) mg/dL Total Bilirubin 0.30 (0.1-1.2) mg/dL AST 17 (5-40) units/L ALT 19 (7-56) units/L Alkaline Phosphatase 78 (35-129) units/L Total Creatine Kinase (55-170) units/L Troponin T < 0.010 (0.00-0.029) ng/mL Total Protein 6.5 (6.3-8.2) g/dL Albumin 3.8 L (3.9-5) g/dL Albumin/Globulin Ratio 1.4 % TSH (0.270-4.200) mlU/mL Free T4 (0.76-1.46) ng/dL 07/02/20 07/02/20 07/02/20 Range/Units 03:47 03:47 03:47 WBC (4.5-11.0) K/mm3 RBC (3.65-5.03) M/mm3 Hgb (11.8-15.2) gm/dl Hct (35.5-45.6) % MCV (84-94) fl MCH (28-32) pg MCHC (32-34) % RDW (13.2-15.2) % Plt Count (140-440) K/mm3 Lymph % (Auto) (13.4-35.0) % [place] % (Auto) (0.0-7.3) % Eos % (Auto) (0.0-4.3) % Baso % (Auto) (0.0-1.8) % Lymph # (Auto) (1.2-5.4) K/mm3 [place] # (Auto) (0.0-0.8) K/mm3 Eos # (Auto) (0.0-0.4) K/mm3 Baso # (Auto) (0.0-0.1) K/mm3 Seg Neutrophils % (40.0-70.0) % Seg Neutrophils # (1.8-7.7) K/mm3 PT (12.2-14.9) Sec. INR (0.87-1.13) D-Dimer (0-234) ng/mlDDU Sodium (137-145) mmol/L Potassium (3.6-5.0) mmol/L Chloride (98-107) mmol/L Carbon Dioxide (22-30) mmol/L Anion Gap mmol/L BUN (9-20) mg/dL Creatinine (0.8-1.3) mg/dL Estimated GFR ml/min BUN/Creatinine Ratio % Glucose (75-100) mg/dL Calcium (8.4-10.2) mg/dL Magnesium 2.10 (1.7-2.3) mg/dL Total Bilirubin (0.1-1.2) mg/dL AST (5-40) units/L ALT (7-56) units/L Alkaline Phosphatase (35-129) units/L Total Creatine Kinase 341 H (55-170) units/L Troponin T (0.00-0.029) ng/mL Total Protein (6.3-8.2) g/dL Albumin (3.9-5) g/dL Albumin/Globulin Ratio % TSH 0.264 L (0.270-4.200) mlU/mL Free T4 1.15 (0.76-1.46) ng/dL 07/02/20 Range/Units 03:47 WBC (4.5-11.0) K/mm3 RBC (3.65-5.03) M/mm3 Hgb (11.8-15.2) gm/dl Hct (35.5-45.6) % MCV (84-94) fl MCH (28-32) pg MCHC (32-34) % RDW (13.2-15.2) % Plt Count (140-440) K/mm3 Lymph % (Auto) (13.4-35.0) % [place] % (Auto) (0.0-7.3) % Eos % (Auto) (0.0-4.3) % Baso % (Auto) (0.0-1.8) % Lymph # (Auto) (1.2-5.4) K/mm3 [place] # (Auto) (0.0-0.8) K/mm3 Eos # (Auto) (0.0-0.4) K/mm3 Baso # (Auto) (0.0-0.1) K/mm3 Seg Neutrophils % (40.0-70.0) % Seg Neutrophils # (1.8-7.7) K/mm3 PT (12.2-14.9) Sec. INR (0.87-1.13) D-Dimer 135.00 (0-234) ng/mlDDU Sodium (137-145) mmol/L Potassium (3.6-5.0) mmol/L Chloride (98-107) mmol/L Carbon Dioxide (22-30) mmol/L Anion Gap mmol/L BUN (9-20) mg/dL Creatinine (0.8-1.3) mg/dL Estimated GFR ml/min BUN/Creatinine Ratio % Glucose (75-100) mg/dL Calcium (8.4-10.2) mg/dL Magnesium (1.7-2.3) mg/dL Total Bilirubin (0.1-1.2) mg/dL AST (5-40) units/L ALT (7-56) units/L Alkaline Phosphatase (35-129) units/L Total Creatine Kinase (55-170) units/L Troponin T (0.00-0.029) ng/mL Total Protein (6.3-8.2) g/dL Albumin (3.9-5) g/dL Albumin/Globulin Ratio % TSH (0.270-4.200) mlU/mL Free T4 (0.76-1.46) ng/dL - EKG Data -: EKG Interpreted by Me EKG shows normal: sinus rhythm, axis, intervals, QRS complexes, ST-T waves Rate: normal - EKG Data When compared to previous EKG there are: no significant change Interpretation: unchanged when compared t (12/10/19) - Radiology Data Radiology results: image reviewed interpreted by me: Chest x-ray does not show any acute process. There are no pleural effusions, obvious pneumonia and there is no pneumothorax. No significant cardiomegaly. - Medical Decision Making This patient presents to the emergency department with complaint of some generalized chest pain and generalized weakness that started earlier in the e vening and led to what sounds like near syncope. The patient denies actually having loss of consciousness. At the time of my examination he does not have any focal, motor or sensory deficits and his cranial nerves are intact. EKG did not have any morphology consistent with ST elevation OR or any dysrhythmia. Chest x-ray does not show any pneumonia, pleural effusions, pneumothorax, focal consolidation, or any other acute process. The patient's labs have been unremarkable including CBC, metabolic panel, negative troponin, negative D-dimer, no signs of rhabdomyolysis, and a normal thyroid level. Vital signs have been reassuring throughout his ED course including being afebrile. The patient was seen ambulatory throughout the emergency department and both appears and feels stable. He was reevaluated multiple times over multiple hours and there has been no further episodes of near syncope. The patient is low on the heart and CARLTON score. For all these reasons the patient appears safe for discharge home at this time. His contact information has been sent over to the [facility], and someone from their office should be contacting him shortly for close outpatient follow-up as part of our hospitals low risk chest pain protocol. The patient has been instructed to return to the emergency department with any worsening of his symptoms, or with any acute distress. Critical Care Time: No Critical care attestation.: If time is entered above; I have spent that time in minutes in the direct care of this critically ill patient, excluding procedure time. ED Disposition Clinical Impression: Near syncope Chest pain Qualifiers: Chest pain type: unspecified Qualified Code(s): R07.9 - Chest pain, unspecified Disposition: DC- TO HOME OR SELFCARE Is pt being admited?: No Condition: Stable Instructions: Near-Syncope, Nonspecific Chest Pain, Adult Additional Instructions: Please follow-up with a primary care physician in the next few days. I am sending your contact information over to the [facility], and someone from their office should be contacting you shortly for close outpatient follow-up. Just in case, I am giving you a referral for one of their compensation and benefits administrator, Dr. Li. Return to the emergency department with any worsening of your symptoms, new or concerning symptoms not addressed during this current emergency department visi t, or with any acute distress. Referrals: PRIMARY MD DAV [Primary Care Provider] - 2-3 Days MARTHA LI MD [Staff Physician] - 2-3 Days Time of Disposition: 06:18
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
[2020-07-02 04:22] LABS: Basophils % (Auto) 0.7 % (0.0-1.8); Eosinophils # (Auto) 0.1 K/mm3 (0.0-0.4); Hematocrit 41.1 % (35.5-45.6); Hemoglobin 13.7 gm/dl (11.8-15.2); Lymphocytes # (Auto) 1.3 K/mm3 (1.2-5.4); Lymphocytes % (Auto) 23.3 % (13.4-35.0); Mean Corpuscular HGB Conc 33 % (32-34); Mean Corpuscular Volume 90 fl (84-94); Monocytes # (Auto) 0.5 K/mm3 (0.0-0.8); Monocytes % (Auto) 9.2 % (0.0-7.3); Platelet Count 156 K/mm3 (140-440); Red Blood Count 4.59 M/mm3 (3.65-5.03); Red Cell Distribution Width 13.8 % (13.2-15.2)
[2020-07-02 04:25] LABS: Alanine Aminotransferase 19 units/L (7-56); Albumin 3.8 g/dL (3.9-5); BUN/Creatinine Ratio 17; Blood Urea Nitrogen 19 mg/dL (9-20); Calcium 8.3 mg/dL (8.4-10.2); Hemolysis Index 12
[2020-07-02 04:38] LABS: INR 1.04 (0.87-1.13)
[2020-07-02 06:15] VITALS: BP 128/79
--- NOTE | 2020-07-03 10:46 | Electrocardiograph Report ---
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
== END 2020-07-02 06:31 | disposition home or self-care (01) ==
LOC: ED 02:42
DX: R55 Syncope and collapse (principal); R07.89 Other chest pain; I10 Essential (primary) hypertension; M19.91 Primary osteoarthritis, unspecified site; J45.909 Unspecified asthma, uncomplicated; F12.10 Cannabis abuse, uncomplicated; Z98.890 Other specified postprocedural states; Z79.899 Other long term (current) drug therapy
CPT/HCPCS: 36415; 71045; 80053; 82550; 83735; 84439; 84443; 84484; 85025; 85379; 85610; 93005; 96360; 99284; J7030

== ENCOUNTER 2020-07-12 13:04 | Emergency (ER) | payer BC ==
[2020-07-12 14:23] VITALS: BP 155/105
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
[2020-07-12] MEDS ORDERED: HYDROcodone/ACETAMINOPHEN 5-325 MG TAB PO ONE (15:21)
[2020-07-12 16:10] LABS: Alanine Aminotransferase 21 units/L (7-56); Albumin 4.2 g/dL (3.9-5); BUN/Creatinine Ratio 13; Basophils % (Auto) 0.4 % (0.0-1.8); Blood Urea Nitrogen 13 mg/dL (9-20); Calcium 8.5 mg/dL (8.4-10.2); Eosinophils % (Auto) 0.9 % (0.0-4.3); Hematocrit 45.9 % (35.5-45.6); Hemoglobin 15.1 gm/dl (11.8-15.2); Hemolysis Index 10; Lymphocytes # (Auto) 1.9 K/mm3 (1.2-5.4); Lymphocytes % (Auto) 36.5 % (13.4-35.0); Mean Corpuscular HGB Conc 33 % (32-34); Mean Corpuscular Volume 90 fl (84-94); Monocytes # (Auto) 0.5 K/mm3 (0.0-0.8); Monocytes % (Auto) 9.2 % (0.0-7.3); Platelet Count 154 K/mm3 (140-440); Red Blood Count 5.12 M/mm3 (3.65-5.03); Red Cell Distribution Width 13.9 % (13.2-15.2)
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
== END 2020-07-12 19:00 | disposition home or self-care (01) ==
LOC: EDBD 13:04 → ED 13:04
DX: S16.1XXA Strain of muscle, fascia and tendon at neck level, initial encounter (principal); S39.012A Strain of muscle, fascia and tendon of lower back, initial encounter; R07.89 Other chest pain; R10.9 Unspecified abdominal pain; I10 Essential (primary) hypertension; J45.909 Unspecified asthma, uncomplicated; M19.91 Primary osteoarthritis, unspecified site; F12.10 Cannabis abuse, uncomplicated; Z98.890 Other specified postprocedural states; Z79.1 Long term (current) use of non-steroidal anti-inflammatories (NSAID); Z79.2 Long term (current) use of antibiotics; Z79.899 Other long term (current) drug therapy; V49.9XXA Car occupant (driver) (passenger) injured in unspecified traffic accident, initial encounter; Y93.89 Activity, other specified; Y92.410 Unspecified street and highway as the place of occurrence of the external cause; Y99.8 Other external cause status
CPT/HCPCS: 36415; 70450; 71260; 72125; 74177; 80053; 85025; 99284; Q9967

== ENCOUNTER 2020-12-11 21:43 | Emergency (ER) | payer SELFPAY ==
[2020-12-11 23:19] VITALS: BP 180/129
--- NOTE | 2020-12-12 00:04 | Emergency Department Report ---
ED General Adult HPI - General Chief complaint: Sore Throat Stated complaint: THROAT/ PAIN BEHIND L EYE Source: patient Mode of arrival: Ambulatory Limitations: No Limitations - History of Present Illness Initial comments: Patient is a 45-year-old -Monegas[place] male with past medical history of chronic osteoarthritis, asthma and hypertension who presents to the ED with complaint of acute onset persistent sore throat, dysphagia and bilateral anterior cervical lymph node pain for the last 2 days. Worse in the last 12 hours. Patient also complains of chills and fever subjectively. Patient denies dizziness, syncope, headache, chest pain or shortness of breath, cough, abdominal pain, neck pain, nausea and vomiting, nasal and sinus congestion or change in vision. MD Complaint: Sore throat, dysphagia -: Sudden, days(s) (2) Location: mouth Radiation: non-radiation Severity scale (0 -10): 4 Quality: aching, sharp Consistency: constant Improves with: none Worsens with: none Associated Symptoms: denies other symptoms, fever/chills, loss of appetite. denies: confusion, chest pain, cough, diaphoresis, headaches, malaise, nausea/vomiting, rash, seizure, shortness of breath, syncope, weakness Treatments Prior to Arrival: none - Related Data Previous Rx's Medication Instructions Recorded Last Taken Type Sulfamethoxazole/Trimethoprim 1 each PO BID #6 tablet 01/16/18 Unknown Rx [Bactrim DS TAB] ALBUTEROL Inhaler(NF) [VENTOLIN 2 puff IH Q4H PRN #1 inha 08/14/18 Unknown Rx Inhaler(NF)] Azithromycin [Zithromax Z-TRISTON] 250 mg PO DAILY 5 Days #6 tab 08/14/18 Unknown Rx Benzonatate [Tessalon Perles] 100 mg PO Q8HR PRN #30 capsule 08/14/18 Unknown Rx Ibuprofen [Ibuprofen 800] 800 mg PO TID PRN #30 tablet 08/14/18 Unknown Rx dexAMETHasone [Decadron] 4 mg PO Q8H #12 tablet 08/14/18 Unknown Rx Cyclobenzaprine [Flexeril] 10 mg PO TID PRN #15 tablet 11/01/18 Unknown Rx HYDROcodone/APAP 5-325 [[place] 1 each PO Q6HR PRN #10 tablet 11/01/18 Unknown Rx 5/325] Albuterol Mdi (or & Nicu Only) 2 puff IH QID PRN #8.5 gram 10/01/19 Unknown Rx [ProAir HFA Inhaler] Famotidine [Pepcid] 20 mg PO BID #30 tablet 10/01/19 Unknown Rx predniSONE [Deltasone] 40 mg PO QDAY 5 Days #10 tab 10/01/19 Unknown Rx Famotidine [Pepcid] 20 mg PO Q12H #60 tablet 12/10/19 Unknown Rx Naproxen 500 mg PO Q12H PRN #30 tablet 12/10/19 Unknown Rx Ketorolac [Toradol] 10 mg PO Q6H PRN #12 tablet 07/12/20 Unknown Rx methOCARBAMOL [Robaxin TAB] 500 mg PO Q6H PRN #14 tablet 07/12/20 Unknown Rx traMADoL [Ultram] 50 mg PO Q6HR PRN #12 tablet 07/12/20 Unknown Rx Clindamycin [Clindamycin CAP] 300 mg PO Q8HR #60 capsule 12/12/20 Unknown Rx Ibuprofen [Motrin 800 MG tab] 800 mg PO Q8HR PRN #30 tablet 12/12/20 Unknown Rx Lidocaine Viscous 2% 10 ml PO Q6H PRN #120 ml 12/12/20 Unknown Rx amLODIPine 10 mg PO DAILY #30 tab 12/12/20 Unknown Rx Allergies Allergy/AdvReac Type Severity Reaction Status Date / Time No Known Allergies Allergy Verified 03/20/19 13:55 ED Review of Systems ROS: Stated complaint: THROAT/ PAIN BEHIND L EYE Other details as noted in HPI Constitutional: chills. denies: fever, malaise Eyes: denies: eye pain, eye discharge, vision change ENT: throat pain. denies: ear pain Respiratory: denies: cough, shortness of breath, wheezing Cardiovascular: denies: chest pain, palpitations Endocrine: no symptoms reported Gastrointestinal: nausea. denies: abdominal pain, vomiting, diarrhea Genitourinary: denies: urgency, dysuria Musculoskeletal: denies: back pain, joint swelling, arthralgia Skin: denies: rash, lesions Neurological: denies: headache, weakness, paresthesias Psychiatric: denies: anxiety, depression Hematological/Lymphatic: denies: easy bleeding, easy bruising ED Past Medical Hx - Past Medical History Previous Medical History?: Yes Hx Hypertension: Yes Hx Arthritis: Yes Hx Asthma: Yes - Surgical History Past Surgical History?: Yes Additional Surgical History: Hernia Surgery - Social History Smoking Status: Never Smoker Substance Use Type: Marijuana - Medications Home Medications: Home Medications Medication Instructions Recorded Confirmed Last Taken Type Sulfamethoxazole/Trimethoprim 1 each PO BID #6 tablet 01/16/18 Unknown Rx [Bactrim DS TAB] ALBUTEROL Inhaler(NF) [VENTOLIN 2 puff IH Q4H PRN #1 inha 08/14/18 Unknown Rx Inhaler(NF)] Azithromycin [Zithromax Z-TRISTON] 250 mg PO DAILY 5 Days #6 tab 08/14/18 Unknown Rx Benzonatate [Tessalon Perles] 100 mg PO Q8HR PRN #30 capsule 08/14/18 Unknown Rx Ibuprofen [Ibuprofen 800] 800 mg PO TID PRN #30 tablet 08/14/18 Unknown Rx dexAMETHasone [Decadron] 4 mg PO Q8H #12 tablet 08/14/18 Unknown Rx Cyclobenzaprine [Flexeril] 10 mg PO TID PRN #15 tablet 11/01/18 Unknown Rx HYDROcodone/APAP 5-325 [[place] 1 each PO Q6HR PRN #10 tablet 11/01/18 Unknown Rx 5/325] Albuterol Mdi (or & Nicu Only) 2 puff IH QID PRN #8.5 gram 10/01/19 Unknown Rx [ProAir HFA Inhaler] Famotidine [Pepcid] 20 mg PO BID #30 tablet 10/01/19 Unknown Rx predniSONE [Deltasone] 40 mg PO QDAY 5 Days #10 tab 10/01/19 Unknown Rx Famotidine [Pepcid] 20 mg PO Q12H #60 tablet 12/10/19 Unknown Rx Naproxen 500 mg PO Q12H PRN #30 tablet 12/10/19 Unknown Rx Ketorolac [Toradol] 10 mg PO Q6H PRN #12 tablet 07/12/20 Unknown Rx methOCARBAMOL [Robaxin TAB] 500 mg PO Q6H PRN #14 tablet 07/12/20 Unknown Rx traMADoL [Ultram] 50 mg PO Q6HR PRN #12 tablet 07/12/20 Unknown Rx Clindamycin [Clindamycin CAP] 300 mg PO Q8HR #60 capsule 12/12/20 Unknown Rx Ibuprofen [Motrin 800 MG tab] 800 mg PO Q8HR PRN #30 tablet 12/12/20 Unknown Rx Lidocaine Viscous 2% 10 ml PO Q6H PRN #120 ml 12/12/20 Unknown Rx amLODIPine 10 mg PO DAILY #30 tab 12/12/20 Unknown Rx ED Physical Exam - General Limitations: No Limitations General appearance: alert, in no apparent distress - Head Head exam: Present: atraumatic, normocephalic, normal inspection - Eye Eye exam: Present: normal appearance, PERRL, EOMI Pupils: Present: normal accommodation - ENT ENT exam: Present: mucous membranes moist, TM's normal bilaterally, normal external ear exam, other (Erythematous oropharynx and tonsils; no exudates) - Neck Neck exam: Present: normal inspection, full ROM, lymphadenopathy (Palpable bilateral anterior cervical lymphadenopathy). Absent: tenderness - Respiratory Respiratory exam: Present: normal lung sounds bilaterally. Absent: respiratory distress, wheezes, rales, stridor, chest wall tenderness, accessory muscle use - Cardiovascular Cardiovascular Exam: Present: regular rate, normal rhythm, normal heart sounds. Absent: systolic murmur, diastolic murmur, rubs, gallop - GI/Abdominal GI/Abdominal exam: Present: soft, normal bowel sounds. Absent: distended, tenderness, guarding - Extremities Exam Extremities exam: Present: normal inspection, full ROM, normal capillary refill - Back Exam Back exam: Present: normal inspection, full ROM. Absent: tenderness, CVA tenderness (R), CVA tenderness (L), muscle spasm, paraspinal tenderness - Neurological Exam Neurological exam: Present: alert, oriented X3, CN II-XII intact, normal gait, reflexes normal - Psychiatric Psychiatric exam: Present: normal affect, normal mood - Skin Skin exam: Present: warm, dry, intact, normal color. Absent: rash ED Course Vital Signs 12/11/20 12/11/20 23:16 23:19 Temperature 98.1 F Pulse Rate 79 Respiratory 18 Rate Blood Pressure 210/145 Blood Pressure 180/129 [Right] O2 Sat by Pulse 97 Oximetry ED Medical Decision Making - Medical Decision Making This is a 45-year-old -[place] male with no past medical history presents to the ED with complaint of acute onset persistent sore throat, dysphagia and bilateral anterior cervical lymph node pain for the last 2 days. Worse in the last 12 hours. Patient also complains of chills and fever subjectively. In the ED, patient is alert and oriented x3 and is not in any distress but anxious and hypertensive. Patient states that he does not take any blood pressure medications at home. Patient was treated for pain in the ED and was given blood pressure medications in the ED. Patient was therefore discharged home on a prescription of antibiotics and blood pressure medications and was advised to follow-up with his primary care physician in 7 to 10 days for reevaluation or return to the ED immediately if symptoms get worse. - Differential Diagnosis Strep pharyngitis; tonsillitis; URI; COVID-19 Critical care attestation.: If time is entered above; I have spent that time in minutes in the direct care of this critically ill patient, excluding procedure time. ED Disposition Clinical Impression: Acute bacterial pharyngitis, Acute bacterial tonsillitis, Uncontrolled stage 2 hypertension Disposition: HOME / SELF CARE / HOMELESS Is pt being admited?: No Does the pt Need Aspirin: No Condition: Stable Instructions: Hypertension (ED), Tonsillitis, [id number], Hypertension, Adult, [id number], Pharyngitis, [id number] Additional Instructions: Take medication with food, drink plenty of fluids and follow-up with your primary care physician in 7 to 10 days for reevaluation. Return to the ED immediately if symptoms get worse. Prescriptions: amLODIPine 10 mg PO DAILY #30 tab Clindamycin [Clindamycin CAP] 300 mg PO Q8HR #60 capsule Lidocaine Viscous 2% 10 ml PO Q6H PRN #120 ml PRN Reason: Sore Throat Ibuprofen [Motrin 800 MG tab] 800 mg PO Q8HR PRN #30 tablet PRN Reason: pain Referrals: [facility] [Provider Group] - 3-5 Days Time of Disposition: 00:05 Print Language: BENGALI
[2020-12-12] MEDS ORDERED: cloNIDine 0.1 MG TAB PO ONE (00:07)
== END 2020-12-12 01:04 | disposition home or self-care (01) ==
LOC: ED 21:43
DX: J03.80 Acute tonsillitis due to other specified organisms (principal); B96.89 Other specified bacterial agents as the cause of diseases classified elsewhere; E11.65 Type 2 diabetes mellitus with hyperglycemia; M19.90 Unspecified osteoarthritis, unspecified site; J45.909 Unspecified asthma, uncomplicated; Z98.890 Other specified postprocedural states
CPT/HCPCS: 99281

== ENCOUNTER 2021-09-17 03:15 | Emergency (ER) | payer SELFPAY ==
[2021-09-17 06:00] VITALS: BP 168/116
[2021-09-17 06:48] LABS: Bilirubin,Urine NEG (Negative); Blood,Urine NEG (Negative); Color,Urine Yellow (Yellow)
[2021-09-17 07:03] LABS: Mucus,Urine 3+ /HPF
== END 2021-09-17 19:18 | disposition left against medical advice (07) ==
LOC: ED 03:15
DX: R51.9 Headache, unspecified (principal); M54.9 Dorsalgia, unspecified; Z53.21 Procedure and treatment not carried out due to patient leaving prior to being seen by health care provider
CPT/HCPCS: 81001